=== PATIENT | male | born 1990 | race Caucasian/White ===

== ENCOUNTER 2018-12-04 20:22 | Emergency (ER) | payer MEDICAID, SELFPAY ==
--- NOTE | 2018-12-04 20:28 | ED.GENADUL_ITS ---
Discharge Plan Disposition Patient Disposition: HOME Condition: Good Discharge Details Chief Complaint: RashLesion Clinical Impression: Allergy to poison ani, Poison ani dermatitis Primary Care Provider: None,None ED Provider: Fco Joshi Home Meds and New Rx's Prescriptions: New diphenhydramine HCl [Benadryl] 25 MG capsule 25 mg PO Q6H Qty: 100 RF: 0 prednisone 20 mg tablet 20 mg PO DAILY Qty: 42 RF: 0 No Action ibuprofen 200 MG tablet 4 tab PO Q8H PRNQty: 0 RF: 0 Discharge Instructions Instructions: Poison Ani (ED) Additional Instructions: You have notable dermatitis secondary to poison ani or poison oak. Please take the steroid and antibiotic as directed. He will have a prolonged dose of 3 weeks. Please take the Benadryl every 6 hours as directed. Please take all of your close and bedding linen and wash them in hot water with extra detergent. If you notice any worsening of your symptoms, or any new symptoms such as vomiting, diarrhea, fever, chills, shortness of breath, chest pain, numbness, weakness, or fainting , please return immediately to the emergency department for reevaluation. Please follow up with your primary care provider as soon as possible for reassessment and reevaluation. As always, it was a pleasure participating in your medical care today. Please follow-up with your family doctor in regards to hypertension, avoid salty foods. Medical Decision Making This is a 28-year-old male who presents today for evaluation of rash after contact with poison ani or poison oak. Is been present for the last 2 to 3 days not been improving. Slight worsening and spreading. Rash is clinically consistent with a dermatitis from contact oil-based plant. No evidence of superinfection or cellulitis. No evidence of oral lesions. No new seizure medications. Because of the amount of rash and total skin coverage area, I do not feel that topical steroids are appropriate, and instead we will do a prolonged course of oral steroids and Benadryl. We discussed the importance of washing all clothes, and linens, and close follow-up. Patient is trying to set up with PCP at this time, and does not want any additional assistance with this. We did discuss his elevated blood pressure the importance of PCP follow-up. We discussed red flags which to return. I have extensively reviewed the treatment plan and discharge instructions with the patient. I have addressed all patient concerns at this time. The patient was made aware of what symptoms to monitor for that would warrant a return to the emergency department. Discussed the plan with the patient, they demonstrate verbal understanding and agreement with our assessment and plan at this time. HPI General Date/Time Provider Initiated Documentation: 12/04/18 20:25 . HPI Narrative: This is a 28-year-old male with a past medical history of seizures for which he takes no medication currently, bipolar disorder, ADHD and depression. He presents today for evaluation of rash. Patient states that 1 to 2 days ago at his work he came into contact with poison ani or poison [employer]. He is not sure which one, however he then subsequently developed a rash on his calves, right thigh, back, and hands. It is notably pruritic. He denies any discharge, he denies any fever or chills. He denies any oral lesions. He denies any new medications, new seizure medications, or any other previous rashes. He denies any other modifying factors at this time. He denies chest pain, shortness of breath, numbness tingling or weakness. Related Data Home Medications Medication Instructions Recorded Confirmed ibuprofen 4 tab PO Q8H PRN #0 12/07/16 12/04/18 diphenhydramine HCl [Benadryl] 25 mg PO Q6H #100 cap 12/04/18 prednisone 20 mg PO DAILY #42 tab 12/04/18 Previous Rx's Medication Instructions Recorded ibuprofen 4 tab PO Q8H PRN #0 12/07/16 diphenhydramine HCl [Benadryl] 25 mg PO Q6H #100 cap 12/04/18 prednisone 20 mg PO DAILY #42 tab 12/04/18 Allergies Allergy/AdvReac Type Severity Reaction Status Date / Time acetaminophen Allergy Severe seizures Unverified 12/04/18 20:37 bupropion HCl Allergy Severe seizures Unverified 12/04/18 20:37 [From Wellbutrin] Review of Systems Review of Systems All systems reviewed & are unremarkable except as noted in HPI and below PFSH Medical History (Updated 12/04/18 @ 20:36 by Miley Jaquez) Epilepsy (Acute) Social History Smoking/Tobacco Use Status: Current every day Alcohol Intake: former Drug use: Daily Substance use type: marijuana Do you feel safe in your relationship?: Yes Exam Narrative Exam Narrative: 1.Const: Well-nourished, Well-developed, appearing stated age 2.Eyes: PERRL, no conjunctival injection, and symmetrical lids. 3.ENT: Atraumatic external nose and ears. Moist MM. Neck: Symmetric, trachea midline, No thyromegaly. 4.CVS: +S1/S2, No murmurs or gallops. Peripheral pulses 2+ and equal in all extremities. Brisk capillary refill in all extremities. 5.RESP: Unlabored respiratory effort. Clear to auscultation bilaterally. No wheezes rales or rhonchi 6.GI: Soft, Nontender/Nondistended, No hepatosplenomegaly. No guarding or rebound. 7.MSK: Normocephalic/Atraumatic, Extremities w/o deformity or ttp No cyanosis or clubbing, Normal movement of all extremities 8.Skin: Warm, Dry, there is evidence of notable raised mildly erythemic circularly irregular lesions on the calves, right thigh, hands and right lower flank. No evidence of superimposed superinfection or cellulitis. No drainage or discharge. Negative Nikolsky sign. No large vesicles or bulla. No palpable purpura. No oral lesions. No mucosal lesions. No evidence of severe cellulitis. No evidence of vaccine preventable rash. 9.Neuro: director labor standards II-XII grossly intact. Sensation grossly intact, no focal neurologic deficits. 10.Psych: (AAO) x3. Appropriate mood and affect
[2018-12-04 20:31] VITALS: BP 153/134; PULSE 104; RESP 18; TEMP 36.6; O2SAT 98
[2018-12-04] MEDS: predniSONE 20 MG TAB 60 MG PO (20:44)
[2018-12-04 20:50] VITALS: BP 118/87
== END 2018-12-04 20:49 | disposition home or self-care (01) ==
LOC: ER 21:09
PROVIDERS: Emergency Provider Student in an Organized Health Care Education/Training Program
DX: L25.5 Unspecified contact dermatitis due to plants, except food (principal)
CPT/HCPCS: 99283; J7512

== ENCOUNTER 2019-01-11 21:48 | Emergency (ER) | payer MEDICAID, SELFPAY ==
[2019-01-11 22:01] VITALS: BP 113/59; PULSE 103; RESP 18; TEMP 36.7; O2SAT 98
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
--- NOTE | 2019-01-11 22:32 | DI.RAD_ITS ---
SYMPTOM/DIAGNOSIS: ? FOREIGN BODY RIGHT FOOT: Two views. There is generalized soft tissue swelling of the foot, particularly laterally. No radiopaque foreign bodies are present. No acute fracture or dislocation is seen. There is a non united osseous fragment seen at the base of the right fifth metatarsal. IMPRESSION: No radiopaque foreign body seen in the soft tissues.
[2019-01-11] MEDS: Cephalexin 500 MG CAP PO (22:41)
[2019-01-11 22:42] VITALS: BP 101/63; PULSE 99; RESP 16; O2SAT 100
--- NOTE | 2019-01-11 22:43 | NUR.NOTE ---
Nursing Note: pt to x-ray with precinct police lieutenant
[2019-01-11] MEDS: Lidocaine 1% Pres-Free 5 ML VIAL IJ (23:00)
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
--- NOTE | 2019-01-11 23:59 | NUR.NOTE ---
abrasion to rt rader and bottom of rt foot cleansed with betadine, soap/water, rinsed with water, dried and BRAXTON and gauze placed to site without incident. pt tolerated well. pt d/c to PD custody-refused walking boot suggested by Dr Padron. Nursing Note:
[2019-01-12] MEDS: Cephalexin 500 MG CAP PO (00:02)
== END 2019-01-12 | disposition other institution (70) ==
PROVIDERS: Emergency Provider Emergency Medicine
DX: S91.311A Laceration without foreign body, right foot, initial encounter (principal); S80.811A Abrasion, right lower leg, initial encounter; W13.4XXA Fall from, out of or through window, initial encounter; W01.110A Fall on same level from slipping, tripping and stumbling with subsequent striking against sharp glass, initial encounter; F10.120 Alcohol abuse with intoxication, uncomplicated
CPT/HCPCS: 90471; 99285; 73620; 99284; L4361

== ENCOUNTER 2021-08-11 22:27 | Observation (INO) | payer MEDICAID, SELFPAY ==
[2021-08-11] VITALS (13 sets, daily range): BP systolic 112–141; BP diastolic 59–125; PULSE 91–110; RESP 0–29; TEMP 36.7; O2SAT 68–99
--- NOTE | 2021-08-11 22:15 | RT.EKG_ITS ---
APPROVED REPORT Exam: Resting ECG Reason for Exam: ?overdose Patient Location: E HR:116 bpm ECG Measurements Heart Rate 116 AXIS PA 211 P 51 QRSd 94 QRS -40 QT 325 T 52 QTc 439 Conclusion Sinus tachycardia...rate> 99 Ventricular premature complex...V complex w/ short R-R interval Prolonged PA interval...PA >205, V-rate 91-120 Left axis deviation...QRS axis (-30,-90) significant motion artifact, no obvious stemi
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
[2021-08-11 22:59] LABS: BE (Venous) -4 mmol/L (-2-3); HCO3 (Venous) 22 mmol/L (23-28); O2 Sat (Venous) 86 %; TCO2 (Venous) 20 mmol/L (24-29); pCO2 (Venous) 44 mmHg (41-51); pH (Venous) 7.31 (7.31-7.41); pO2 (Venous) 58 mmHg
[2021-08-11 22:59] LABS: Source Nasal/Nares
[2021-08-11 23:01] LABS: Abs Immature Grans 0.03 10^3/uL (0.0-0.06); Absolute Basophil Count 0.04 10^3/uL (0.0-0.2); Absolute Eosinophil Count 0.15 10^3/uL (0.0-0.7); Absolute Lymphocyte Count 1.92 10^3/uL (1.2-3.4); Absolute Monocyte Count 0.81 10^3/uL (0.1-0.8); Absolute Neutrophil Count 6.46 10^3/uL (1.2-6.7); Basophils % 0.4; Eosinophils % 1.6; HCT 45.3 % (40.0-50.0); HGB 15.3 g/dL (13.5-17.5); Immature Grans % 0.3; Lymphocytes % 20.4; MCH 30.1 pg (27.0-33.0); MCHC 33.8 % (32.0-36.0); MCV 89.2 fL (80-95); MPV 9.6 fL (8.0-11.0); Monocytes % 8.6; Neutrophils % 68.7; Nucleated RBC 0 %; Platelet Count 342 10^3/uL (130-400); RBC 5.08 10^6/uL (4.36-5.78); RDW 12.7 % (11.8-14.1); RDW-SD 41.8 fL; WBC 9.41 10^3/uL (4.4-10.8)
[2021-08-11 23:05] LABS: Bilirubin Negative (Negative); Blood Small (Negative); Clarity Sl Cloudy (Clear); Glucose Negative (Negative); Ketones Negative (Negative); Leukocyte Esterase Negative (Negative); Nitrite Negative (Negative); Specific Gravity >= 1.030 (1.005-1.025); Urobilinogen 0.2 EU/dL (Up TO 0.2)
[2021-08-11] MEDS: Rocuronium 50 MG/5 ML SYR 150 MG IVP (23:07)
[2021-08-11] MEDS: PROPOFOL 1,000 MG/100 ML BTL 4.26 MG IVPB (23:10)
--- NOTE | 2021-08-11 23:15 | DI.CT_ITS ---
Exam(s) CT CHEST/ABD/PEL WO EXAM: CT CHEST/ABD/PEL WO CLINICAL HISTORY: ?aspiration vs pneumonia, tube placement. TECHNIQUE: Imaging Protocol: Axial computed tomography images with coronal and sagittal reformatted images were created and reviewed CONTRAST MATERIAL: Intravenous: Omnipaque 350 Contrast volume:100 ml Oral: yes / no COMPARISON: No exams were available for comparison FINDINGS: CHEST: Tracheobronchial tree: Endotracheal tube 2 cm from the amanda. Mediastinum and Kate: No dominant adenopathy or fluid collection. Pulmonary parenchyma: Consolidation in both lower lobes posterior aspect of the right upper lobe with air bronchograms, right greater than left. Pleura: No effusion or pneumothorax. Lymph nodes: Within normal limits. Aorta: Thoracic portion non-dilated. Heart: Heart size normal. Bones: Unremarkable for age. No lytic or blastic lesions. A nasogastric tube within the esophagus and stomach .. ABDOMEN: Liver: Normal density. No measurable mass. Gallbladder and biliary tract: No radiodense calculus or dilation. Pancreas: Normal density, no abnormal calcifications or inflammatory process. Spleen: Normal. Kidneys: Normal size, contour and axis. No radiodense stones or obstructive uropathy. No masses seen. Adrenal glands: No masses seen. Aorta: Abdominal portion non-dilated. Lymph nodes: Within normal limits. Soft tissues: Unremarkable. Stomach and small bowel: Nasogastric tube terminates in the body of the stomach. PELVIS: Bladder: Symmetric distention, no gross wall thickening. Bowel: No obstruction or bowel wall thickening. Peritoneal cavity: No ascites, collection or mesenteric inflammatory response. Bones: Right L5 pars defect. Spine otherwise unremarkable. No pelvic fractures. Reproductive organs: Ovoid soft tissue density within the right inguinal canal could represent an und escended testicle. IMPRESSION: Satisfactory placement of NG tube and nasogastric tube. Dense bilateral areas of pulmonary consolida tion suspicious for aspiration pneumonia. The ovoid soft tissue density in the right inguinal canal could represent an undescended testicle. C linical correlation is recommended. RADIATION DOSE DELIVERED: 2,337.69mGy.cm Total DLP DATA REPOSITORY: All CT scans at this facility are submitted to the National Radiology Data Registry (NRDR) Dose Index Registry (DIR) with the [employer] (A[employer]). RADIATION OPTIMIZATION: All CT scans at this facility use at least one of these dose optimization te chniques: automated exposure control; mA and/or kV adjustment per patient size (includes targeted exa ms where dose is matched to clinical indication); or iterative reconstruction.
[2021-08-11 23:23] LABS: Bacteria Moderate HPF (Negative); Crystals Negative HPF (Negative); Epithelial Cells Rare HPF (Negative); Mucus Trace (Negative); Other Cells Few Renal (Negative)
[2021-08-11 23:24] LABS: C & S Indicated? Yes; Casts 10-20 Hyaline LPF (Negative)
[2021-08-11 23:25] LABS: Acetaminophen < 2 ug/mL (10-30)
[2021-08-11 23:30] LABS: *AMPHETAMINES SCREEN URINE Positive (Negative); *BARBITURATES SCREEN URINE Negative (Negative); *BENZODIAZEPINES SCREEN URINE Positive (Negative); Cannabinoids THC Positive (Negative); Cocaine Screen,Urine Negative (Negative); METHADONE URINE SCREEN Negative (Negative); OPIATES URINE SCREEN Negative (Negative)
[2021-08-11 23:31] LABS: ALT 96 U/L (16-63); AST 80 U/L (15-37); Albumin 3.8 g/dL (3.4-5.0); Alkaline Phosphatase 78 U/L (46-116); Anion Gap 15.4 mmol/L (3-11); BUN 4 mg/dL (7-18); Bilirubin, Total 0.5 mg/dL (0.2-1.0); CO2 21.6 mmol/L (21.0-32.0); CREATININE 1.1 mg/dL (0.70-1.30); Calcium 8.5 mg/dL (8.5-10.1); Chloride 105 mmol/L (98-107); ETHANOL BLOOD 157.6 mg/dL (<10); Glucose 98 mg/dL (74-106); Magnesium 2.4 mg/dL (1.8-2.4); Potassium 3.5 mmol/L (3.5-5.1); Sodium 142 mmol/L (136-145); Total Protein 6.7 g/dL (6.4-8.2)
[2021-08-11 23:32] LABS: Tricyclic Antidepressants Negative (Negative)
[2021-08-11 23:32] LABS: Creatine Kinase 1088 U/L (39-308)
[2021-08-11 23:42] LABS: COVID-19 PCR Negative (Negative)
[2021-08-12] VITALS (38 sets, daily range): BP systolic 84–140; BP diastolic 44–92; PULSE 75–106; RESP 14–37; TEMP 35.6–36.2; O2SAT 92–100
[2021-08-12] MEDS: Normal Saline 1,000 ML 1000 ML IV
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
[2021-08-12] MEDS: LORazepam 2 MG/ML VIAL IVP (01:40)
[2021-08-12] MEDS: Lactated Ringers 1,000 ML 150 ML IV (02:15)
[2021-08-12] MEDS: PROPOFOL 1,000 MG/100 ML BTL 31.524 MG IVPB (02:25)
[2021-08-12] MEDS: cefTRIAXone 1,000 MG in Normal Saline 50 ML 100 MG IVPB (03:01)
[2021-08-12] MEDS: Normal Saline Flush 10 ML SYR IVP (03:03)
--- NOTE | 2021-08-12 03:22 | NUR.NOTE ---
Mother phone [phone].Nursing Note:
[2021-08-12] MEDS: PROPOFOL 1,000 MG/100 ML BTL 34.08 MG IVPB (05:21)
[2021-08-12 06:51] LABS: HCT 46.9 % (40.0-50.0); HGB 15.6 g/dL (13.5-17.5); MCH 29.9 pg (27.0-33.0); MCHC 33.3 % (32.0-36.0); MPV 9.8 fL (8.0-11.0); Platelet Count 341 10^3/uL (130-400); RBC 5.21 10^6/uL (4.36-5.78); RDW 12.9 % (11.8-14.1); RDW-SD 42.5 fL; WBC 13.29 10^3/uL (4.4-10.8)
[2021-08-12 07:06] LABS: ALT 88 U/L (16-63); AST 73 U/L (15-37); Anion Gap 7.1 mmol/L (3-11); BUN 3 mg/dL (7-18); CO2 27.9 mmol/L (21.0-32.0); CREATININE 1.1 mg/dL (0.70-1.30); Calcium 8.5 mg/dL (8.5-10.1); Chloride 107 mmol/L (98-107); Creatine Kinase 873 U/L (39-308); Glucose 87 mg/dL (74-106); Potassium 4.2 mmol/L (3.5-5.1); Sodium 142 mmol/L (136-145)
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
[2021-08-12] MEDS: dexmedeTOMidine IN 0.9 % NACL 400 MCG/100 ML BTL 12.1 MCG IVPB (07:30)
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
== END 2021-08-12 09:30 | disposition home or self-care (01) ==
LOC: ER 08-12 02:05 → ICU 08-12 02:06
PROVIDERS: Admitting Provider General Practice; Emergency Provider Emergency Medicine; Visit Provider General Practice
DX: T50.901A Poisoning by unspecified drugs, medicaments and biological substances, accidental (unintentional), initial encounter (principal); J69.0 Pneumonitis due to inhalation of food and vomit; J96.90 Respiratory failure, unspecified, unspecified whether with hypoxia or hypercapnia; M62.82 Rhabdomyolysis; D72.829 Elevated white blood cell count, unspecified; S00.03XA Contusion of scalp, initial encounter; Y04.0XXA Assault by unarmed brawl or fight, initial encounter; Z78.1 Physical restraint status; F17.210 Nicotine dependence, cigarettes, uncomplicated; R45.1 Restlessness and agitation; Z20.822 Contact with and (suspected) exposure to COVID-19; F15.10 Other stimulant abuse, uncomplicated; R74.01 Elevation of levels of liver transaminase levels; R94.31 Abnormal electrocardiogram [ECG] [EKG]; F10.129 Alcohol abuse with intoxication, unspecified; Y90.6 Blood alcohol level of 120-199 mg/100 ml
CPT/HCPCS: 31500; 51702; 71250; 80048; 80053; 80307; 82550; 82805; 85027; 87040; 87635; 93005; 96361; 96365; 96366; 96375; 99291; 70450; 72125; 74176; 80320; 80329; 81003; 81015; 83735; 84443; 84450; 84460; 85025; 87086; 93010; 94002; 99235; J0696; J2060

== ENCOUNTER 2022-06-11 11:22 | Inpatient (IN) | payer MEDICAID, SELFPAY ==
[2022-06-11 11:27] VITALS: BP 151/77; PULSE 67; RESP 18; TEMP 36.7; O2SAT 97
[2022-06-11 12:02] LABS: Abs Immature Grans 0.93 10^3/uL (0.0-0.06); Absolute Basophil Count 0.12 10^3/uL (0.0-0.2); Absolute Eosinophil Count 0.27 10^3/uL (0.0-0.7); Absolute Lymphocyte Count 1.57 10^3/uL (1.2-3.4); Absolute Neutrophil Count 12.46 10^3/uL (1.2-6.7); Basophils % 0.7; Eosinophils % 1.6; HCT 40.1 % (40.0-50.0); HGB 13.6 g/dL (13.5-17.5); Immature Grans % 5.5; Lymphocytes % 9.3; MCH 29.1 pg (27.0-33.0); MCHC 33.9 % (32.0-36.0); MCV 86 fL (80-95); MPV 9.4 fL (8.0-11.0); Neutrophils % 73.9; RBC 4.67 10^6/uL (4.36-5.78); RDW 11.9 % (11.8-14.1); RDW-SD 37.6 fL; WBC 16.86 10^3/uL (4.4-10.8)
[2022-06-11 12:05] LABS: Absolute Monocyte Count 1.52 10^3/uL (0.1-0.8); ESR 36 mm/hr (0-15)
[2022-06-11] MEDS: VANCOMYCIN/WATER (PEG) 2 GM/400 ML BAG IVPB ×2 (12:07→23:35)
[2022-06-11 12:10] LABS: ALT 20 U/L (16-63); AST 16 U/L (15-37); Albumin 3.7 g/dL (3.4-5.0); Alkaline Phosphatase 95 U/L (46-116); Anion Gap 5.4 mmol/L (3-11); BUN 13 mg/dL (7-18); Bilirubin, Total 0.4 mg/dL (0.2-1.0); C-Reactive Protein 8.03 mg/dL (0.0-0.3); CO2 29.6 mmol/L (21.0-32.0); Calcium 9.5 mg/dL (8.5-10.1); Chloride 100 mmol/L (98-107); Estimated GFR 103.19 (mL/min/1.73m2); Glucose 115 mg/dL (74-106); Potassium 4.3 mmol/L (3.5-5.1); Sodium 135 mmol/L (136-145); Total Protein 7.9 g/dL (6.4-8.2)
[2022-06-11 12:13] VITALS: BP 113/49; PULSE 85; RESP 18; O2SAT 97
[2022-06-11 12:20] LABS: Platelet Count 438 10^3/uL (130-400)
[2022-06-11 12:21] LABS: Diff Comment Agrees w/ Instrument; RBC Morphology Normal
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
[2022-06-11 13:04] LABS: Source Nasal/Nares
[2022-06-11 13:37] LABS: COVID-19 PCR Negative (Negative)
[2022-06-11 14:19] VITALS: BP 118/83; PULSE 88; RESP 18; O2SAT 99
[2022-06-11 14:35] VITALS: BP 130/79; PULSE 82; RESP 18; TEMP 35.9; O2SAT 100
[2022-06-11 14:39] VITALS: BP 130/79; PULSE 85; RESP 18; TEMP 35.9; O2SAT 100
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
[2022-06-11] MEDS: Heparin 5,000 UNITS/ML VIAL 5000 UNITS SC ×2 (16:10→22:01)
[2022-06-11] MEDS: Naproxen 500 MG TAB PO (16:10)
[2022-06-11] MEDS: Mupirocin 2% 15 GM TUBE TP (21:45)
[2022-06-11] MEDS: Omeprazole 20 MG CAPCR PO (22:01)
--- NOTE | 2022-06-11 22:14 | WOUNDCARE ---
Wound Care Report 32 yo male with a h/o methamphetamine abuse. Pedro is currently incarcerated. Pedro has pimple-like lesions on his back. Two of the lesions have grown significantly in size becoming erythematous and tender. Pedro has taken antibiotics for 1 week; Clindamycin initially then Bactrim with no improvement. Pedro has an elevated WBC at 16.86 and Vancomycin was started in the ED. Pedro is a current smoker and is positive for MRSA.
[2022-06-11 22:52] VITALS: BP 107/66; PULSE 71; RESP 16; TEMP 36.7; O2SAT 98
--- NOTE | 2022-06-11 22:59 | WOUNDCONS ---
- If Service Date Differs Date of service: 06/11/22 Time of Service: 22:59 Wound Initial Evaluation Narrative: Patient seen at bedside. Patient is agreeable to wound consult with photography and consent signed. This keno writer / runner reviewed the H&P and Labs. Pedro is a 32 yo male with a h/o methamphetamine abuse. Pedro is currently incarcerated. Pedro has pimple-like lesions on his back. Two of the lesions have increased significantly in size becoming erythematous and tender. Pedro has taken antibiotics for 1 week; Clindamycin initially then Bactrim with no improvement. Pedro has an elevated WBC at 16.86. Vancomycin was started in the ED. Pedro is a current smoker. The wound culture is positive for MRSA. - Wound Left Posterior Scapula Wound Type: Full Thickness Wound Bed Greatest Portion: Shiny Wound Surrounding Tissue Appearance: Bright Red, Taut, Indurated Wound Length: 7 m (erythematous area included in measurement) Wound Width: 5.5 m (erythematous area included in measurement) Wound Depth: 0.2 cm Wound Drainage Amount: Minimal Wound Drainage Odor: None/Absent Wound Drainage Description: Sero Sanguineous Wound Topical Solution/Irrigant: Saline Irrigant Right Posterior Thoracic Wound Type: Full Thickness Wound General Appearance: Reddened, Draining Wound Bed Greatest Portion: Yellow (Slough) Wound Surrounding Tissue Appearance: Bright Red, Indurated, Undermined Percent of Wound Bed Slough/Yellow: 90 (Core of slough in wound bed is tethered internally) Wound Length: 1 cm Wound Width: 1.4 cm Wound Depth: 1.5 cm Wound Drainage Amount: Large Wound Drainage Odor: Foul Odor Wound Drainage Description: Purulent Wound Topical Solution/Irrigant: Saline Irrigant Wound Debridement Result: Pt Unable to Tolerate, Yellow Sloughing Remains (Tunneling in 360* directions while attempting to measure wound depth) Additional Other Comments: Erythematous area to left of wound in center of back is outlined. with blue marker and continues to be an area of concern. Lower Right Back Wound Type: Full Thickness Wound Bed Greatest Portion: Red (Granulation) Wound Length: 1.5 cm Wound Width: 1.4 cm Wound Depth: 0.3 cm Wound Drainage Amount: Moderate Wound Drainage Odor: None/Absent Wound Drainage Description: Purulent, Sero Sanguineous Wound Topical Solution/Irrigant: Saline Irrigant Left Posterior Thoracic Wound Type: Other Wound General Appearance: Open to air (Erythema is outlined with skin marker), Reddened Wound Surrounding Tissue Appearance: Bright Red, Indurated Wound Drainage Amount: None Right Shoulder Wound Type: Full Thickness Wound General Appearance: Well Approximated Wound Bed Greatest Portion: Red (Granulation) Wound Surrounding Tissue Appearance: [place] Wound Drainage Amount: None - Pain Pain Level: 6 Pain Description: Burning, Achy - Treatment/Dressing Change Topicals/Ointments: Other (Mupirocin) Cleanse With: Saline (cleanse with saline on gauze) Dressing Types: Mepilex w/Border - Nutrition Education Reviewed Nutrition Education: Yes Note: PT BMI 46.8. Protien intake discussed for effective wound healing reviewed with patient. Smoking cessation discussed and recommended for proper wound healing. - Recomendation Recomendation:: Right posterior thoracic wound with packing remove dressing daily Wipe away exudate using gauze and Anasept wound tank car cleaner Remove iodoform packing Flush wound with 10ml of normal saline With sterile technique, repack wound with iodoform dressing Cover with mepilex All other lesions including unopened areas... Remove dressing TID Clean area with Anasept and gauze. Pat dry. Apply mupirocin to lesions TID Cover with mepilex or bandaid Physcian/Nurse Practioner Notified: Yes (provider will be emailed) Treatment Time - Time Total Time Spent with Patient: 60
[2022-06-12] MEDS: Heparin 5,000 UNITS/ML VIAL 5000 UNITS SC ×3 (05:58→21:38)
[2022-06-12 06:39] LABS: Abs Immature Grans 1.01 10^3/uL (0.0-0.06); Absolute Basophil Count 0.07 10^3/uL (0.0-0.2); Absolute Eosinophil Count 0.37 10^3/uL (0.0-0.7); Absolute Lymphocyte Count 2.04 10^3/uL (1.2-3.4); Absolute Monocyte Count 1.42 10^3/uL (0.1-0.8); Basophils % 0.6; HCT 35.6 % (40.0-50.0); HGB 12.2 g/dL (13.5-17.5); Immature Grans % 8.3; Lymphocytes % 16.7; MCHC 34.3 % (32.0-36.0); MCV 88 fL (80-95); MPV 9.1 fL (8.0-11.0); Monocytes % 11.6; Neutrophils % 59.8; Platelet Count 401 10^3/uL (130-400); RBC 4.07 10^6/uL (4.36-5.78); RDW 11.9 % (11.8-14.1); RDW-SD 38.1 fL; WBC 12.23 10^3/uL (4.4-10.8)
[2022-06-12 06:41] LABS: ESR 30 mm/hr (0-15)
[2022-06-12 06:42] LABS: Absolute Neutrophil Count 7.31 10^3/uL (1.2-6.7)
[2022-06-12 07:08] LABS: C-Reactive Protein 5.75 mg/dL (0.0-0.3)
[2022-06-12 07:10] LABS: Diff Comment Diff Reviewed; RBC Morphology Normal
[2022-06-12] MEDS: Omeprazole 20 MG CAPCR PO ×2 (07:55→20:45)
[2022-06-12 08:01] VITALS: BP 104/68; PULSE 76; RESP 16; TEMP 36.1; O2SAT 96
[2022-06-12] MEDS: Omnipaque 350 MG/ML 500 ML BTL-Imaging package 70 ML IJ (12:58)
[2022-06-12] MEDS: Normal Saline - Diluent 50 ML VIAL IV (12:59)
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
--- NOTE | 2022-06-12 13:45 | DI.CT_ITS ---
Exam(s) CT CHEST W EXAM: CT CHEST W CLINICAL HISTORY: multiple abscesses on back. TECHNIQUE: Multi planar reconstructions were performed. CONTRAST MATERIAL: Omnipaque 350; 70 cc COMPARISON: CT CT CHEST/ABD/PEL WO from 08/12/2021 FINDINGS: CHEST: EXTRA THORACIC SOFT TISSUES: There are multiple areas of subcutaneous abnormality both sides of the u pper back which are both cutaneous and extending through the subcutaneous layer and more prominent ri ght of center. On the right side there are few gas bubbles therein, consistent with abscess. This a ana measures approximately 5 cm across and extends from the skin to the surface of the ipsilateral ri ght trapezius muscle. On the opposite-left side there is a similar but smaller finding higher up the re does not appear to be evidence of abscess within the actual trapezius musculature on either side. There is overlying skin thickening-probable cellulitis. LUNGS: Appearance of the lungs has significantly improved from July 2021. The previously present bi lateral infiltrates resolved. Minimal increased markings are noted lung bases but no confluent infil trates nor pleural effusions. No ominous pulmonary nodules. No significant focal findings in trache a and mainstem bronchi. MEDIASTINUM: There is no hilar nor mediastinal adenopathy. Visualized thyroid unremarkable. CARDIAC: Heart size is normal. There is no pericardial effusion.Caliber of the thoracic aorta is wit hin normal limits. VISUALIZED UPPER ABDOMEN:There are no significant adrenal masses. OSSEOUS: No significant osseous lesions.. IMPRESSION: 1. Subcutaneous findings of the upper back both sides right more than left consistent with infectious /abscesses. There is no radiopaque foreign body 2. Significant improvement in the appearance of both lung herrera when compared to the prior MRI scan of July 2011. The bilateral infiltrates have cleared and there presently no pleural effusions. RADIATION DOSE DELIVERED: 868.47mGy.cm Total DLP DATA REPOSITORY: All CT scans at this facility are submitted to the National Radiology Data Registry (NRDR) Dose Index Registry (DIR) with the [employer] (ACR). RADIATION OPTIMIZATION: All CT scans at this facility use at least one of these dose optimization te chniques: automated exposure control; mA and/or kV adjustment per patient size (includes targeted exa ms where dose is matched to clinical indication); or iterative reconstruction.
[2022-06-12] MEDS: VANCOMYCIN/WATER (PEG) 2 GM/400 ML BAG IVPB ×2 (13:47→23:46)
--- NOTE | 2022-06-12 15:04 | PHA.REVIEW2 ---
Pharmacy Admission Review - Admission Clinical Review (Last Reviewed 08/12/21 @ 08:39 by Tavo Cisse MD) MRSA cellulitis (Acute) Methamphetamine abuse (Acute) acetaminophen Allergy (Severe, Unverified 06/11/22 12:55) seizures bupropion HCl [From Wellbutrin] Allergy (Severe, Unverified 06/11/22 12:55) seizures Resuscitation Status Full Code Height 5 ft 9 in Weight 143.7 kg - Renal Dosing Renal Dosing: BUN 13 mg/dL (7-18) 06/11/22 11:42 Creatinine 1.0 mg/dL (0.70-1.30) 06/11/22 11:42 Medications needing adjustments: Reviewed (Crcl ~151.2 mL/min current meds okay) - Anticoagulation Anticoagulation: Hgb 12.2 g/dL (13.5-17.5) L 06/12/22 06:10 Hct 35.6 % (40.0-50.0) L 06/12/22 06:10 Plt Count 401 10^3/uL (130-400) H 06/12/22 06:10 Creatinine 1.0 mg/dL (0.70-1.30) 06/11/22 11:42 DVT Prophylaxis: Reviewed Medications: Heparin Therapeutic Anticoagulation: N/A - Opiate Usage Evaluate Pain Scale/Pains Meds: Reviewed Scheduled Bowel Reg ordered if on Opiates?: No (has PRN med ordered) - Relevant Labs ESR 30 mm/hr (0-15) H 06/12/22 06:10 Sodium 135 mmol/L (136-145) L 06/11/22 11:42 Potassium 4.3 mmol/L (3.5-5.1) 06/11/22 11:42 Chloride 100 mmol/L (98-107) 06/11/22 11:42 C-Reactive Protein 5.75 mg/dL (0.0-0.3) H 06/12/22 06:10 Electrolytes, C-Reactive P, ESR: Reviewed - DM Control DM Control: Glucose 115 mg/dL (74-106) H 06/11/22 11:42 DM Control: Reviewed (no DM noted in pt's medical history) - Cardiac Review BP, HR, EF%: Reviewed - Qtc Review QTc: N/A - IV to PO Switch IV Medications: Reviewed - Home Meds Home Med List reviewed: Reviewed (buprenorphine should be used cautiously in pts with a history of seizure disorders as it may cause or exacerbate preexisting seizures) Relevent Home Meds Not ordered & why?: acetaminophen (it is noted that the pt has an allergy to this med and the reaction is seizures, the provider was going to talk to the pt regarding this), triamcinolone cream - Current meds Current Medication Order Review: Reviewed - Comments Comments/Follow Ups: Watch VS, labs, for culture results, and for med changes. Antibiotic Review - Pharmacy Antibiotic Review Pharmacy Antibiotic Activity: C/S review (One BC has no growth at 24 hours, the other is growing gram positive cocci. MRSA screen is negative), Reviewed, no change (Vancomycin continues (day 2) for MRSA cellulitis per H&P. Vanco trough to be ordered tomorrow morning.) Relevant Labs: Relevant Labs 06/12/22 06:10 C-Reactive Protein 5.75 H
--- NOTE | 2022-06-12 15:10 | PGE_ITS ---
Date of Service Date of service: 06/12/22 Time of Service: 10:55 Assessment and Plan Assessment and plan (1) MRSA cellulitis: Status: Acute Assessment and plan: 32yo male who is incarcerated, presents with MRSA cellulitis, with multiple abscesses over his back and arms. Failed outpt treatment with clindamycin, then IM rocephin + Bactrim. Continue Vancomycin IV, through level discussed with pharmacy and will be scheduled for 06/13 AM before AM dose Continue Bactroban cream TID to lesions. Wound care: pack draining wounds; right mid-back wound dressing change bid Monitor clinically CT scan completed Surgical consult completed Bacteremia in one bottle for GPC, will await speciation to determine if endocarditis should be considered as a potential complication. We will then consider TTE and adjustment of the treatment then. (2) Gram-positive cocci bacteremia: Status: Acute Assessment and plan: As above (3) Obesity, morbid, BMI 40.0-49.9: Status: Chronic Assessment and plan: Encourage lifestyle changes. (4) Abscess of multiple sites: Status: Acute Assessment and plan: As above (5) DVT prophylaxis: Status: Acute Assessment and plan: Pt has risk factors for DVT Heparin 5000 units SQ Q8 hours (6) Discharge planning issues: Status: Acute Assessment and plan: Care management will determine patient's placement based on clinical progression and length of treatment Patient is from a correctional facility Discussed with Dr. Purdy Subjective Subjective Interval history since last seen: Constitutional: reports: Patient reports feeling better, denies chills or fever overnight denies dizziness or lightheadedness HEENT: reports Denies swallowing difficulty, neck pain or new neck swelling Neuro: Denies weakness to extemities, denies new numbness Cardiac: ?Denies chest pain Resp: Denies shortness of breath or difficulty breathing GI: Reports having a bowel movement today Denies nausea or vomiting Musk:? Reports soreness to back and and trapezius muscle at 2/10 but denies needing pain medicine at this time Skin: Denies any other lesions on his body. : Denies dysuria Exam Narrative Exam Narrative: HEENT: normocephalic , atraumatic, no adenopathy, no swelling noticed in to neck, lower jaw. Neuro: Alert and oriented X4, no focal neurological deficit, conjugated gaze Cardiac: S1, S2, no murmur, no swelling to extremities, pulses are present, cap refill <3 seconds Resp: Lung are clear throughout GI: Soft, non-tender, non distended :Voiding yellow clear urine Musk:?push and pull strength 5/5 Skin: multiple (5) lesions to to back, pus-like drainage noticed, no foul odor, mepilex in place on each wound Psych: Calm, flat affect Objective Last Vital Signs Temp 97.0 F L 06/12/22 08:01 Pulse 76 06/12/22 08:01 Resp 16 06/12/22 08:01 BP 104/68 06/12/22 08:01 Pulse Ox 96 06/12/22 08:01 Laboratory Results - last 24 hr 06/12/22 06/12/22 06/12/22 06:10 06:10 06:10 WBC 12.23 H RBC 4.07 L Hgb 12.2 L Hct 35.6 L MCV 88 MCH 30.0 MCHC 34.3 RDW 11.9 Plt Count 401 H MPV 9.1 Immature Gran % 8.3 Neutrophils % 59.8 Lymphocytes % 16.7 Monocytes % 11.6 Eosinophils % 3.0 Basophils % 0.6 Nucleated RBC % 0.0 Absolute Neutrophils 7.31 H Absolute Lymphocytes 2.04 Absolute Monocytes 1.42 H Absolute Eosinophils 0.37 Absolute Basophils 0.07 RBC Morphology Normal ESR 30 H C-Reactive Protein 5.75 H Time Spent with Patient Time Spent with Patient: >50 minutes Time was spent: preparing to see the patient(eg.review tests), obtaining and/or reviewing separately otained hiistory, referring, communicating with other health youth career specialist and indepentently interpreting results
[2022-06-12 15:52] VITALS: BP 109/63; PULSE 75; RESP 18; TEMP 36.5; O2SAT 97
--- NOTE | 2022-06-12 15:55 | W.PM.PROGNOT ---
Date of Service Date of service: 06/12/22 Time of Service: 15:58 Assessment and Plan Assessment and plan (1) Abscess of multiple sites: Status: Acute Assessment and plan: Due to MRSA, having failed outpatient treatment. Continue vancomycin. Will do serial bed-side assessments of the abscesses that have not yet been drained. Surgery evaluated the draining abscesses and is recommending packing/wound care. (2) MRSA cellulitis: Status: Acute Assessment and plan: As above (3) Gram-positive cocci bacteremia: Status: Acute Assessment and plan: Suspect this is due to #1; will await speciation/sensitivities. Obtain echo to ensure no endocarditis, especially given reports of chest pain. 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 May require transition to a medical facility for encarcerated patients. (6) DVT prophylaxis: Status: Acute Assessment and plan: SC heparin. Subjective Subjective Interval history since last seen: Mr Hoang states that one of the abscesses on his back has been draining a lot of pus. He denies dizziness, shortness of breath, nausea. He has had a constant chest pain since this whole thing started 2 weeks ago. Exam Narrative Exam Narrative: General: Pleasant male who is sitting up in bed, multiple dressings on his back Skin: when dressing removed, the R upper back lesion with a skin opening drained an impressive amount of purulent material; other open lesions had significantly less purulent discharge; L-sided closed indurated erythematous area was interrogated via POCUS ultrasound: no clear fluid collection demonstrated. HEENT: EOMI, MMM Heart: RRR, no m/r/g Lungs: CTAB Abdomen: soft, nontender, nondistended Extremities: no edema BLEs Objective Last Vital Signs Temp 36.5 C 06/12/22 15:52 Pulse 75 06/12/22 15:52 Resp 18 06/12/22 15:52 BP 109/63 06/12/22 15:52 Pulse Ox 97 06/12/22 15:52 Laboratory Results - last 24 hr 06/12/22 06/12/22 06/12/22 06:10 06:10 06:10 WBC 12.23 H RBC 4.07 L Hgb 12.2 L Hct 35.6 L MCV 88 MCH 30.0 MCHC 34.3 RDW 11.9 Plt Count 401 H MPV 9.1 Immature Gran % 8.3 Neutrophils % 59.8 Lymphocytes % 16.7 Monocytes % 11.6 Eosinophils % 3.0 Basophils % 0.6 Nucleated RBC % 0.0 Absolute Neutrophils 7.31 H Absolute Lymphocytes 2.04 Absolute Monocytes 1.42 H Absolute Eosinophils 0.37 Absolute Basophils 0.07 RBC Morphology Normal ESR 30 H C-Reactive Protein 5.75 H Objective Narrative Objective Narrative: CT chest/thorax: 1. Subcutaneous findings of the upper back both sides right more than left consistent with infectious/abscesses.? There is no radiopaque foreign body 2. Significant improvement in the appearance of both lung herrera when compared to the prior MRI scan of July 2011.? The bilateral infiltrates have cleared and there presently no pleural effusions. Time Spent with Patient Time Spent with Patient: 35-49 minutes Time was spent: preparing to see the patient(eg.review tests), obtaining and/or reviewing separately otained hiistory, ordering medications,tests, procedures, referring, communicating with other health managed care analyst, indepentently interpreting results, counseling the patient and care coordination
--- NOTE | 2022-06-12 16:22 | PDOC.CMIN ---
- If Service Date Differs Date of service: 06/12/22 Time of Service: 16:22 Care Management Initial Assess REASON FOR HOSPITALIZATION:: Pustular lesions, cellulitis PAST MEDICAL HISTORY/PAST SURGICAL HISTORY:: All Active Problems. MRSA cellulitis (Acute). Prolonged [place] interval present on electrocardiogram (Acute). Transaminitis (Acute). Leukocytosis (Acute). Methamphetamine abuse (Acute). Elevated CPK (Acute). Rhabdomyolysis (Acute). Agitation (Acute). Medical History. Epilepsy PREVIOUS FUNCTIONAL STATUS/SOCIAL/FAMILY SUPPORTS:: Pedro is currently incarcerated at [facility]. He is independent at baseline. CURRENT FUNCTIONAL STATUS:: Pedro was sitting up in bed when CM met with him. He stated that he is comfortable and being well cared for at [facility]. He reported sleeping and eating well. He has two correctional officers in the room with him, per protocol. CM will continue to follow. ADVANCE DIRECTIVES:: Not on file. Has patient been provided with info about the portal/API?: Yes Did the patient sign up for the portal?: No CODE STATUS:: Full Code INSURANCE COVERAGE / FINANCIAL ISSUES:: [facility]/ [facility] CURRENT HOME/COMMUNITY SERVICES/EQUIPMENT:: Pedro is currently incarcerated. PRIMARY CARE PHYSICIAN:: unknown. POTENTIAL DISCHARGE NEEDS:: [facility]. PATIENT/FAMILY EDUCATION NEEDS:: Review discharge instructions and limitations, discussion of self care needs including ask me three. ANTICIPATED BARRIERS TO DISCHARGE:: None identified. TRANSPORTATION:: Via secure transport, provided by [facility]. PLAN:: Anticipate Pedro will return to the [place] correctional facility vs an inpatient unit [facility] another [facility], if indicated. [facility] will coordinate his secure transport. CM will continue to support discharge planning considerations.
[2022-06-12 17:47] LABS: *AMPHETAMINES SCREEN URINE Negative (Negative); *BARBITURATES SCREEN URINE Negative (Negative); *BENZODIAZEPINES SCREEN URINE Negative (Negative); Cannabinoids THC Negative (Negative); Cocaine Screen,Urine Negative (Negative); METHADONE URINE SCREEN Negative (Negative); OPIATES URINE SCREEN Negative (Negative)
[2022-06-12 17:48] LABS: Tricyclic Antidepressants Negative (Negative)
[2022-06-12] MEDS: Mupirocin 2% 15 GM TUBE TP (20:13)
[2022-06-12 20:42] VITALS: BP 128/72; PULSE 70; RESP 19; TEMP 36.6; O2SAT 96
[2022-06-12] MEDS: Naproxen 500 MG TAB PO (20:45)
[2022-06-12] MEDS: Normal Saline Flush 10 ML SYR IVP ×2 (21:38→23:50)
[2022-06-13 01:48] VITALS: BP 118/73; PULSE 70; RESP 18; TEMP 35.8; O2SAT 96
[2022-06-13] MEDS: Heparin 5,000 UNITS/ML VIAL 5000 UNITS SC ×3 (05:45→20:27)
[2022-06-13 06:44] LABS: HCT 36.4 % (40.0-50.0); HGB 12.2 g/dL (13.5-17.5); MCH 29.5 pg (27.0-33.0); MCHC 33.5 % (32.0-36.0); MCV 88 fL (80-95); Platelet Count 394 10^3/uL (130-400); RBC 4.13 10^6/uL (4.36-5.78); RDW 11.9 % (11.8-14.1); RDW-SD 37.9 fL; WBC 11.54 10^3/uL (4.4-10.8)
[2022-06-13 06:51] LABS: ESR 33 mm/hr (0-15)
[2022-06-13 06:56] LABS: Absolute Eosinophil Count 0.58 10^3/uL (0.0-0.7); Absolute Lymphocyte Count 1.96 10^3/uL (1.2-3.4); Absolute Monocyte Count 0.69 10^3/uL (0.1-0.8); Absolute Neutrophil Count 8.31 10^3/uL (1.2-6.7); Atypical Lymphocytes % 2; Bands % 6; Diff Comment Manual Differential; RBC Morphology Normal
[2022-06-13 06:57] LABS: C-Reactive Protein 3.03 mg/dL (0.0-0.3); Magnesium 2.2 mg/dL (1.8-2.4)
[2022-06-13 07:21] LABS: Anion Gap 6.5 mmol/L (3-11); BUN 12 mg/dL (7-18); CO2 27.5 mmol/L (21.0-32.0); CREATININE 0.8 mg/dL (0.70-1.30); Calcium 9.2 mg/dL (8.5-10.1); Chloride 103 mmol/L (98-107); Estimated GFR 121.34 (mL/min/1.73m2); Glucose 90 mg/dL (74-106); Potassium 4.3 mmol/L (3.5-5.1); Sodium 137 mmol/L (136-145)
[2022-06-13 07:25] LABS: Hemoglobin A1C 5.1 % (<5.7)
[2022-06-13 07:28] LABS: Procalcitonin < 0.1 ng/mL
[2022-06-13] MEDS: Omeprazole 20 MG CAPCR PO ×2 (07:40→20:27)
[2022-06-13 07:52] VITALS: BP 110/54; PULSE 69; RESP 16; TEMP 36.3; O2SAT 96
--- NOTE | 2022-06-13 09:02 | W.PM.PROGNOT ---
Date of Service Date of service: 06/13/22 Time of Service: 09:02 Assessment and Plan Assessment and plan (1) MRSA cellulitis: Status: Acute Assessment and plan: 32yo male who is incarcerated, presents with MRSA cellulitis, with multiple lesions over his back and arms. Failed output treatment with clindamycin, then IM rocephin + Bactrim. Vancomycin IV, through level today and titrated as per pharmacy consult, they will pursue further adjustment Bactroban cream TID to lesions. Wound pack draining wounds; right mid-back wound change bid Monitor clinically CT scan completed Surgical consult initiated and in progress Bacteremia in one bottle for MRSA TTE completed this AM, endocarditis/ valvular vegetations could not be confirmed; despite we will treat for bacteremia for 6 weeks from the first negative blood culture. We will draw blood cultures every 24- 48 hours until negative. The patient is C-MRSA, no intracardiac device , is not on HD, foci of infection are treated, has been afebrile from the CF; aforementioned factors would allow present management and will reevaluate as per negative results or persistent bacteremia Will investigate pain describe as spinal by patient for paraspinal right sided T12-L1 abscess pain; no fever and no neurological deficit or radiculopathy at this time.We want to consider further study as the results could influence the course of treatment. Considering MRI thoracic and lumbar spine CBC in AM BMP to monitor renal function while on Vancomycin Repeat blood cultures today Pharmacy consult as per protocol for Vancomycin Initiate oral probiotic/ Bio-K as care home IV antibiotics can increase the risk of nosocomial infections such as C-Diff. (2) Deep vein thrombosis (DVT) prophylaxis declined: Status: Acute Assessment and plan: Pt has risk factors for DVT: Apryl score of 5 with bacteremia, acute infection, BMI 46.8 We will continue Heparin 5000 units SQ Q8 hours (3) Discharge planning issues: Status: Acute Assessment and plan: Care management will determine patient's placement based on clinical progression and length of treatment See above Patient is from a correctional facility Discussed with Dr. Purdy Subjective Subjective Interval history since last seen: Constitutional: reports: Patient reports feeling better, denies chills or fever overnight, reports night sweats denies dizziness or lightheadedness HEENT: Denies swallowing difficulty, neck pain or neck swelling or stiffness Neuro: Denies weakness to extremities, denies new numbness Cardiac: Denies chest pain Resp: Reports: seldom dry non-productive cough, intermittent left sided chest pain on deep breathing persisting from many weeks ago Denies shortness of breath or difficulty breathing GI: Reports having a bowel movement yesterday Denies constipation,nausea or vomiting [place]:? Reports soreness to back and and trapezius muscle at 06/27 but denies needing pain medicine at this time, report right sided spine pain 06/27 Skin: Denies any other lesions on his body. : Report light yellow clear urine Denies dysuria Exam Narrative Exam Narrative: Constitutional: Alert and oriented x3, t, HEENT: Normocephalic, no adenopathy,conjugated gaze,eyelids symmetrical without lesions, discharge, or swelling, pin, moist and intact oral mucosa, no swelling to neck soft tissue. Neurologic: Cranial nerves II-XII intact. Alert and oriented x 3;no focal neurological deficit, conjugated gaze cardiac:S1, S2, no murmur, pulses are positive to extremities. trace edema to left leg, 1+ edema to right leg Resp: Lungs clear to auscultation bilaterally Abdomen: Soft, large, non-distended, : No CVA tenderness Musculoskeletal:Normal gait, 5/5 strength to all four extremities.No paresthesia to lower extremities Skin: 5 lesions/ abcesses to back: left trapezius, right medial sacpula,left scapula, right trapezius, right serratus-oblique region. wound are all dressed with mepilex, right medial sacpula is packed. right paraspinal serratus-oblique region showed increased tenderness on palpation. Hematologic/Lymphatic: No ecchymosis, no lymphadenopathy.? Objective Last Vital Signs Temp 97.3 F L 06/13/22 07:52 Pulse 69 06/13/22 07:52 Resp 16 06/13/22 07:52 BP 110/54 L 06/13/22 07:52 Pulse Ox 96 06/13/22 07:52 Laboratory Results - last 24 hr 06/12/22 06/13/22 06/13/22 17:07 06:00 06:18 WBC RBC Hgb Hct MCV MCH MCHC RDW Plt Count MPV Immature Gran % Neutrophils % Band Neutrophils % Lymphocytes % Atypical Lymphs % Monocytes % Eosinophils % Basophils % Nucleated RBC % Absolute Neutrophils Absolute Lymphocytes Absolute Monocytes Absolute Eosinophils Absolute Basophils RBC Morphology ESR 33 H Sodium Potassium Chloride Carbon Dioxide Anion Gap BUN Creatinine Est GFR (CKD-EPI 2020) Glucose Hemoglobin A1c Calcium Magnesium 2.2 C-Reactive Protein 3.03 H Procalcitonin Urine Opiates Screen Negative Urine Methadone Screen Negative Ur Barbiturates Screen Negative Ur Tricyclics Screen Negative Ur Amphetamines Screen Negative U Benzodiazepines Scrn Negative Urine Cocaine Screen Negative Ur THC Screen Negative 06/13/22 06/13/22 06/13/22 06:18 06:18 06:18 WBC 11.54 H RBC 4.13 L Hgb 12.2 L Hct 36.4 L MCV 88 MCH 29.5 MCHC 33.5 RDW 11.9 Plt Count 394 MPV 9.0 Immature Gran % 0.0 Neutrophils % 66.0 Band Neutrophils % 6 Lymphocytes % 15.0 Atypical Lymphs % 2 Monocytes % 6.0 Eosinophils % 5.0 Basophils % 0.0 Nucleated RBC % 0.0 Absolute Neutrophils 8.31 H Absolute Lymphocytes 1.96 Absolute Monocytes 0.69 Absolute Eosinophils 0.58 Absolute Basophils 0.00 RBC Morphology Normal ESR Sodium 137 Potassium 4.3 Chloride 103 Carbon Dioxide 27.5 Anion Gap 6.5 BUN 12 Creatinine 0.8 Est GFR (CKD-EPI 2020) 121.34 Glucose 90 Hemoglobin A1c Calcium 9.2 Magnesium C-Reactive Protein Procalcitonin < 0.1 Urine Opiates Screen Urine Methadone Screen Ur Barbiturates Screen Ur Tricyclics Screen Ur Amphetamines Screen U Benzodiazepines Scrn Urine Cocaine Screen Ur THC Screen 06/13/22 06:18 WBC RBC Hgb Hct MCV MCH MCHC RDW Plt Count MPV Immature Gran % Neutrophils % Band Neutrophils % Lymphocytes % Atypical Lymphs % Monocytes % Eosinophils % Basophils % Nucleated RBC % Absolute Neutrophils Absolute Lymphocytes Absolute Monocytes Absolute Eosinophils Absolute Basophils RBC Morphology ESR Sodium Potassium Chloride Carbon Dioxide Anion Gap BUN Creatinine Est GFR (CKD-EPI 2020) Glucose Hemoglobin A1c 5.1 Calcium Magnesium C-Reactive Protein Procalcitonin Urine Opiates Screen Urine Methadone Screen Ur Barbiturates Screen Ur Tricyclics Screen Ur Amphetamines Screen U Benzodiazepines Scrn Urine Cocaine Screen Ur THC Screen Time Spent with Patient Time Spent with Patient: >50 minutes Time was spent: preparing to see the patient(eg.review tests) and obtaining and/or reviewing separately [facility]
[2022-06-13] MEDS: Mupirocin 2% 15 GM TUBE TP ×3 (10:24→20:34)
[2022-06-13 11:22] LABS: Vancomycin, Trough 14.6 ug/mL (10.0-20.0)
[2022-06-13] MEDS: VANCOMYCIN/WATER (PEG) 2 GM/400 ML BAG IVPB ×2 (12:26→23:07)
--- NOTE | 2022-06-13 12:29 | PDOC.CMPRO ---
- If Service Date Differs Date of service: 06/13/22 Time of Service: 12:29 Care Management Progress Note S/O: Pedro was sitting up in bed when CM met with him. He stated that he is feeling good today. CM reviewed his plan, and discussed the potential for him to be transferred to another fpc with an inpatient medical unit for custodial antibiotics. Per report, his blood cultures remain positive, therefore he is not ready for discharge to that facility. Once he is medically stable, CM will contact Janes [phone], from [facility], who will coordinate this transfer. CM will continue to follow. A: Pedro is a 32 year old male admitted to [facility] on 06/11/22 for pustular lesions, cellulitis. P: Anticipate Pedro will return to the [place] correctional facility vs an inpatient unit at another fpc/facility, if indicated. [place] [facility] will coordinate his secure transport. CM will continue to support discharge planning considerations.
[2022-06-13] MEDS: HYDROmorphone 2 MG/ML VIAL (15:12)
[2022-06-13] MEDS: Normal Saline Flush 10 ML SYR IVP (15:16)
--- NOTE | 2022-06-13 15:26 | PGE_ITS ---
Date of Service Date of service: 06/13/22 Time of Service: 15:26 Assessment and Plan Assessment and plan (1) Abscess of multiple sites: Status: Acute Assessment and plan: Due to MRSA, having failed outpatient treatment. Continue vancomycin. Surgery is following to see if the upper L back collection needs to be I&D'ed. (2) Gram-positive cocci bacteremia: Status: Acute Assessment and plan: Due to MRSA, 1 bottle/4. Echo w/o vegetations. Await repeat blood cultures. Anticipate 6 weeks of abx from the 1st negative blood cultures. Obtain MRI thoracic and lumbar spine to ensure no vertebral OM/septic discitis/epidural abscess. (3) MRSA cellulitis: Status: Acute Assessment and plan: As above (4) Obesity, morbid, BMI 40.0-49.9: Status: Acute Assessment and plan: A1C 5.1. (5) Discharge planning issues: Status: Acute Assessment and plan: Full code Discussed with care management: will require desktop support associate antibiotics. May require transition to a medical facility for encarcerated patients. (6) DVT prophylaxis: Status: Acute Assessment and plan: SC heparin. Subjective Subjective Interval history since last seen: Mr Hoang reports central mid/lower back pain x 1 week. He denies difficulty with urination/defecation and denies numbness in genital region. He denies paresthesias/weakness/numbness in his legs. He denies dizziness, states his chest pain anteriorly is getting better, denies SOB and nausea. He agrees to having an MRI. Exam Narrative Exam Narrative: General: Pleasant male who is sitting up in bed, multiple dressings on his back Skin: The right-sided upper back dressing is partially saturated. L-sided paraspinal area of induration is visibly unchanged; however, per POCUS, now has a fluid collection. HEENT: EOMI, MMM Heart: RRR, no m/r/g Lungs: CTAB Spine: TTP over T10 Abdomen: soft, nontender, nondistended Extremities: trace edema LLE, +1 edema RLE, able to move BLEs, he is cuffed to the bed on his RLE. Objective Last Vital Signs Temp 36.3 C L 06/13/22 07:52 Pulse 69 06/13/22 07:52 Resp 16 06/13/22 07:52 BP 110/54 L 06/13/22 07:52 Pulse Ox 96 06/13/22 07:52 Laboratory Results - last 24 hr 06/12/22 06/13/22 06/13/22 17:07 06:00 06:18 WBC RBC Hgb Hct MCV MCH MCHC RDW Plt Count MPV Immature Gran % Neutrophils % Band Neutrophils % Lymphocytes % Atypical Lymphs % Monocytes % Eosinophils % Basophils % Nucleated RBC % Absolute Neutrophils Absolute Lymphocytes Absolute Monocytes Absolute Eosinophils Absolute Basophils RBC Morphology ESR 33 H Sodium Potassium Chloride Carbon Dioxide Anion Gap BUN Creatinine Est GFR (CKD-EPI 2020) Glucose Hemoglobin A1c Calcium Magnesium 2.2 C-Reactive Protein 3.03 H Procalcitonin Vancomycin Trough Urine Opiates Screen Negative Urine Methadone Screen Negative Ur Barbiturates Screen Negative Ur Tricyclics Screen Negative Ur Amphetamines Screen Negative U Benzodiazepines Scrn Negative Urine Cocaine Screen Negative Ur THC Screen Negative 06/13/22 06/13/22 06/13/22 06:18 06:18 06:18 WBC 11.54 H RBC 4.13 L Hgb 12.2 L Hct 36.4 L MCV 88 MCH 29.5 MCHC 33.5 RDW 11.9 Plt Count 394 MPV 9.0 Immature Gran % 0.0 Neutrophils % 66.0 Band Neutrophils % 6 Lymphocytes % 15.0 Atypical Lymphs % 2 Monocytes % 6.0 Eosinophils % 5.0 Basophils % 0.0 Nucleated RBC % 0.0 Absolute Neutrophils 8.31 H Absolute Lymphocytes 1.96 Absolute Monocytes 0.69 Absolute Eosinophils 0.58 Absolute Basophils 0.00 RBC Morphology Normal ESR Sodium 137 Potassium 4.3 Chloride 103 Carbon Dioxide 27.5 Anion Gap 6.5 BUN 12 Creatinine 0.8 Est GFR (CKD-EPI 2020) 121.34 Glucose 90 Hemoglobin A1c Calcium 9.2 Magnesium C-Reactive Protein Procalcitonin < 0.1 Vancomycin Trough Urine Opiates Screen Urine Methadone Screen Ur Barbiturates Screen Ur Tricyclics Screen Ur Amphetamines Screen U Benzodiazepines Scrn Urine Cocaine Screen Ur THC Screen 06/13/22 06/13/22 06:18 11:00 WBC RBC Hgb Hct MCV MCH MCHC RDW Plt Count MPV Immature Gran % Neutrophils % Band Neutrophils % Lymphocytes % Atypical Lymphs % Monocytes % Eosinophils % Basophils % Nucleated RBC % Absolute Neutrophils Absolute Lymphocytes Absolute Monocytes Absolute Eosinophils Absolute Basophils RBC Morphology ESR Sodium Potassium Chloride Carbon Dioxide Anion Gap BUN Creatinine Est GFR (CKD-EPI 2020) Glucose Hemoglobin A1c 5.1 Calcium Magnesium C-Reactive Protein Procalcitonin Vancomycin Trough 14.6 Urine Opiates Screen Urine Methadone Screen Ur Barbiturates Screen Ur Tricyclics Screen Ur Amphetamines Screen U Benzodiazepines Scrn Urine Cocaine Screen Ur THC Screen Objective Narrative Objective Narrative: CT chest w/ contrast: 1. Subcutaneous findings of the upper back both sides right more than left consistent with infectious/abscesses.? There is no radiopaque foreign body 2. Significant improvement in the appearance of both lung herrera when compared to the prior MRI scan of July 2011.? The bilateral infiltrates have cleared and there presently no pleural effusions. Echo: Normal study. LV size and systolic function is normal. The left ventricular ejection fraction is 59% by Gonzalez's biplane. RV systolic function is normal. No significant valvular disease noted. Time Spent with Patient Time Spent with Patient: 25-34 minutes Time was spent: preparing to see the patient(eg.review tests), obtaining and/or reviewing separately otained hiistory, ordering medications,tests, procedures, referring, communicating with other health intensive care medicine specialist, indepentently interpreting results, counseling the patient and care coordination
[2022-06-13 15:40] VITALS: BP 114/78; PULSE 73; RESP 16; TEMP 36.7; O2SAT 96
--- NOTE | 2022-06-13 16:01 | W.PM.PROGNOT ---
Date of Service Date of service: 06/13/22 Time of Service: 16:01 Assessment and Plan Assessment and plan (1) MRSA cellulitis: Status: Acute Assessment and plan: 32yo male who is incarcerated, presents with MRSA cellulitis, with multiple lesions over his back and arms. Failed outpt treatment with clindamycin, then IM rocephin + Bactrim. continue Vancomycin Bactoban cream to lesions Warm compresses to lesions that haven't opened yet Would pack draining wounds; right mid-back wound change bid Monitor clinically CT scan reviewed with radiolgist, Dr. Rubio. He does not beleive that there is underlying myositis or signs of necrotizing soft tissue infection Subjective Subjective Interval history since last seen: Pt without new complaints. Denies new fevers/chills. Tolerating diet. Exam Const General: cooperative, healthy appearing, comfortable and no acute distress Nutritional Appearance: average body habitus and well nourished Orientation: alert, awake and oriented x3 Resp Effort & Inspection: normal respiratory effort and able to speak in complete sentences GI Inspection: normal to inspection Palpation: soft and nontender Skin Lesions: lesion noted (Multiple small areas of cellulitis/inflammation over back and arm) and other Other: left trapezius and right medial sub-scapular wounds draining pus; left trapezius wound was probed and found to be shallow with minimal purulence, mostly cellulitic; right medial subscapular wound was probed and min medial loculations encountered and broken up--wound does not extend over spine; small grouping of 3 lesions over left scapula without definite fluctuance or collection Neuro Cognition: normal cognition Speech: speech normal Psych Mental Status: mental status grossly normal Thought Process: normal Thought Content: normal Objective Last Vital Signs Temp 98.0 F 06/13/22 15:40 Pulse 73 06/13/22 15:40 Resp 16 06/13/22 15:40 BP 114/78 06/13/22 15:40 Pulse Ox 96 06/13/22 15:40 Laboratory Results - last 24 hr 06/12/22 06/13/22 06/13/22 17:07 06:00 06:18 WBC RBC Hgb Hct MCV MCH MCHC RDW Plt Count MPV Immature Gran % Neutrophils % Band Neutrophils % Lymphocytes % Atypical Lymphs % Monocytes % Eosinophils % Basophils % Nucleated RBC % Absolute Neutrophils Absolute Lymphocytes Absolute Monocytes Absolute Eosinophils Absolute Basophils RBC Morphology ESR 33 H Sodium Potassium Chloride Carbon Dioxide Anion Gap BUN Creatinine Est GFR (CKD-EPI 2020) Glucose Hemoglobin A1c Calcium Magnesium 2.2 C-Reactive Protein 3.03 H Procalcitonin Vancomycin Trough Urine Opiates Screen Negative Urine Methadone Screen Negative Ur Barbiturates Screen Negative Ur Tricyclics Screen Negative Ur Amphetamines Screen Negative U Benzodiazepines Scrn Negative Urine Cocaine Screen Negative Ur THC Screen Negative 06/13/22 06/13/22 06/13/22 06:18 06:18 06:18 WBC 11.54 H RBC 4.13 L Hgb 12.2 L Hct 36.4 L MCV 88 MCH 29.5 MCHC 33.5 RDW 11.9 Plt Count 394 MPV 9.0 Immature Gran % 0.0 Neutrophils % 66.0 Band Neutrophils % 6 Lymphocytes % 15.0 Atypical Lymphs % 2 Monocytes % 6.0 Eosinophils % 5.0 Basophils % 0.0 Nucleated RBC % 0.0 Absolute Neutrophils 8.31 H Absolute Lymphocytes 1.96 Absolute Monocytes 0.69 Absolute Eosinophils 0.58 Absolute Basophils 0.00 RBC Morphology Normal ESR Sodium 137 Potassium 4.3 Chloride 103 Carbon Dioxide 27.5 Anion Gap 6.5 BUN 12 Creatinine 0.8 Est GFR (CKD-EPI 2020) 121.34 Glucose 90 Hemoglobin A1c Calcium 9.2 Magnesium C-Reactive Protein Procalcitonin < 0.1 Vancomycin Trough Urine Opiates Screen Urine Methadone Screen Ur Barbiturates Screen Ur Tricyclics Screen Ur Amphetamines Screen U Benzodiazepines Scrn Urine Cocaine Screen Ur THC Screen 06/13/22 06/13/22 06:18 11:00 WBC RBC Hgb Hct MCV MCH MCHC RDW Plt Count MPV Immature Gran % Neutrophils % Band Neutrophils % Lymphocytes % Atypical Lymphs % Monocytes % Eosinophils % Basophils % Nucleated RBC % Absolute Neutrophils Absolute Lymphocytes Absolute Monocytes Absolute Eosinophils Absolute Basophils RBC Morphology ESR Sodium Potassium Chloride Carbon Dioxide Anion Gap BUN Creatinine Est GFR (CKD-EPI 2020) Glucose Hemoglobin A1c 5.1 Calcium Magnesium C-Reactive Protein Procalcitonin Vancomycin Trough 14.6 Urine Opiates Screen Urine Methadone Screen Ur Barbiturates Screen Ur Tricyclics Screen Ur Amphetamines Screen U Benzodiazepines Scrn Urine Cocaine Screen Ur THC Screen Objective Narrative Objective Narrative: CT CHEST (06/12/2022): INDINGS: CHEST: EXTRA THORACIC SOFT TISSUES: There are multiple areas of subcutaneous abnormality both sides of the upper back which are both cutaneous and extending through the subcutaneous layer and more prominent right of center.? On the right side there are few gas bubbles therein, consistent with abscess.? This area measures approximately 5 cm across and extends from the skin to the surface of the ipsilateral right trapezius muscle.? On the opposite-left side there is a similar but smaller finding higher up there does not appear to be evidence of abscess within the actual trapezius musculature on either side.? There is overlying skin thickening-probable cellulitis. LUNGS: Appearance of the lungs has significantly improved from July 2021.? The previously present bilateral infiltrates resolved.? Minimal increased markings are noted lung bases but no confluent infiltrates nor pleural effusions.? No ominous pulmonary nodules.? No significant focal findings in trachea and mainstem bronchi.? MEDIASTINUM: There is no hilar nor mediastinal adenopathy. Visualized thyroid unremarkable. CARDIAC: Heart size is normal.? There is no pericardial effusion.Caliber of the thoracic aorta is within normal limits. VISUALIZED UPPER ABDOMEN:There are no significant adrenal masses. ? OSSEOUS: No significant osseous lesions.. IMPRESSION: 1. Subcutaneous findings of the upper back both sides right more than left consistent with infectious/abscesses.? There is no radiopaque foreign body 2. Significant improvement in the appearance of both lung herrera when compared to the prior MRI scan of July 2011.? The bilateral infiltrates have cleared and there presently no pleural effusions. Time Spent with Patient Time Spent with Patient: 25-34 minutes Time was spent: preparing to see the patient(eg.review tests), obtaining and/or reviewing separately otained hiistory, ordering medications,tests, procedures, referring, communicating with other health memory care program director, indepentently interpreting results and counseling the patient
[2022-06-13] MEDS: HYDROmorphone 2 MG/ML SYR 0.5 MG IVP (20:27)
[2022-06-13 23:02] VITALS: BP 124/79; PULSE 70; RESP 14; TEMP 36.3; O2SAT 97
[2022-06-14] MEDS: Heparin 5,000 UNITS/ML VIAL 5000 UNITS SC ×3 (06:11→20:50)
[2022-06-14 06:14] LABS: Abs Immature Grans 1.36 10^3/uL (0.0-0.06); HCT 36.7 % (40.0-50.0); HGB 12.5 g/dL (13.5-17.5); MCH 29.1 pg (27.0-33.0); MCHC 34.1 % (32.0-36.0); MCV 86 fL (80-95); MPV 8.9 fL (8.0-11.0); Platelet Count 397 10^3/uL (130-400); RBC 4.29 10^6/uL (4.36-5.78); RDW 11.8 % (11.8-14.1); RDW-SD 36.6 fL; WBC 11.73 10^3/uL (4.4-10.8)
[2022-06-14 06:34] LABS: Absolute Basophil Count 0.12 10^3/uL (0.0-0.2); Absolute Eosinophil Count 0.35 10^3/uL (0.0-0.7); Absolute Lymphocyte Count 2.82 10^3/uL (1.2-3.4); Absolute Monocyte Count 1.17 10^3/uL (0.1-0.8); Absolute Neutrophil Count 6.92 10^3/uL (1.2-6.7); Atypical Lymphocytes % 3; Diff Comment Manual Differential; Metamyelocytes % 1; Myelocytes % 2
[2022-06-14 06:39] LABS: Anion Gap 6.9 mmol/L (3-11); BUN 14 mg/dL (7-18); C-Reactive Protein 1.87 mg/dL (0.0-0.3); CO2 28.1 mmol/L (21.0-32.0); CREATININE 0.8 mg/dL (0.70-1.30); Calcium 9.1 mg/dL (8.5-10.1); Chloride 103 mmol/L (98-107); Estimated GFR 121.34 (mL/min/1.73m2); Glucose 89 mg/dL (74-106); Potassium 4.2 mmol/L (3.5-5.1); Sodium 138 mmol/L (136-145)
[2022-06-14 07:00] VITALS: BP 117/73; PULSE 78; RESP 16; TEMP 36.8; O2SAT 97
[2022-06-14] MEDS: Omeprazole 20 MG CAPCR PO ×2 (07:39→20:50)
[2022-06-14] MEDS: HYDROmorphone 2 MG/ML SYR 0.5 MG IVP ×3 (08:17→20:50)
[2022-06-14] MEDS: Normal Saline Flush 10 ML SYR IVP ×2 (08:18→15:27)
[2022-06-14] MEDS: Mupirocin 2% 15 GM TUBE TP ×3 (09:19→23:12)
[2022-06-14] MEDS: VANCOMYCIN/WATER (PEG) 2 GM/400 ML BAG IVPB ×2 (12:35→23:02)
--- NOTE | 2022-06-14 13:24 | W.PM.PROGNOT ---
Date of Service Date of service: 06/14/22 Time of Service: 13:24 Assessment and Plan Assessment and plan (1) MRSA cellulitis: Status: Acute Assessment and plan: 32yo male who is incarcerated, presents with MRSA cellulitis, with multiple lesions/abscesses over his back and arms. Failed outpt treatment with clindamycin, then IM rocephin + Bactrim. Cellulitus is improving over back lesions. No need for abscess drainage appreciated at this time. continue Vancomycin Bactoban cream to lesions Warm compresses to lesions that haven't opened yet Would pack draining wounds; left trapezius and right mid-back wound change bid CT scan reviewed with radiolgist, Dr. Rubio. He does not beleive that there is underlying myositis or signs of necrotizing soft tissue infection Subjective Subjective Interval history since last seen: Pt is without new complaints. Still having some midline thoracolumbar pain over the spine. Not in an area near a known cutaneous abscess. Exam Const General: cooperative, healthy appearing, comfortable and no acute distress Nutritional Appearance: average body habitus and well nourished Orientation: alert, awake and oriented x3 Resp Effort & Inspection: normal respiratory effort and able to speak in complete sentences GI Inspection: normal to inspection Palpation: soft and nontender Skin Lesions: lesion noted (Multiple small areas of cellulitis/inflammation over back and arm) and other Other: left trapezius and right medial sub-scapular wounds draining pus; left trapezius wound packed with decreased cellulitis; right medial subscapular wound with overlying dressing, surrounding induration improved; small grouping of 3 lesions over left scapula examine with Dr. Purdy, by ultrasound. Cellulitus improved, no collection >0.5cm seen Neuro Cognition: normal cognition Speech: speech normal Psych Mental Status: mental status grossly normal Thought Process: normal Thought Content: normal Objective Last Vital Signs Temp 98.2 F 06/14/22 07:00 Pulse 78 06/14/22 07:00 Resp 16 06/14/22 07:00 BP 117/73 06/14/22 07:00 Pulse Ox 97 06/14/22 07:00 Laboratory Results - last 24 hr 06/14/22 06/14/22 05:55 05:55 WBC 11.73 H RBC 4.29 L Hgb 12.5 L Hct 36.7 L MCV 86 MCH 29.1 MCHC 34.1 RDW 11.8 Plt Count 397 MPV 8.9 Immature Gran % 0.0 Neutrophils % 59.0 Lymphocytes % 21.0 Atypical Lymphs % 3 Monocytes % 10.0 Eosinophils % 3.0 Basophils % 1.0 Metamyelocytes % 1 Myelocytes % 2 Nucleated RBC % 0.0 Absolute Neutrophils 6.92 H Absolute Lymphocytes 2.82 Absolute Monocytes 1.17 H Absolute Eosinophils 0.35 Absolute Basophils 0.12 Sodium 138 Potassium 4.2 Chloride 103 Carbon Dioxide 28.1 Anion Gap 6.9 BUN 14 Creatinine 0.8 Est GFR (CKD-EPI 2020) 121.34 Glucose 89 Calcium 9.1 Magnesium 2.0 C-Reactive Protein 1.87 H Time Spent with Patient Time Spent with Patient: <25 minutes Time was spent: preparing to see the patient(eg.review tests), obtaining and/or reviewing separately otained hiistory, referring, communicating with other health adult daycare coordinator, indepentently interpreting results and counseling the patient
[2022-06-14 15:18] VITALS: BP 146/76; PULSE 71; RESP 16; TEMP 36.5; O2SAT 96
--- NOTE | 2022-06-14 16:32 | W.PM.PROGNOT ---
Date of Service Date of service: 06/14/22 Time of Service: 13:00 Assessment and Plan Assessment and plan (1) MRSA cellulitis: Status: Acute Assessment and plan: 32yo male who is incarcerated, presents with MRSA cellulitis, with multiple lesions over his back and arms. Failed output treatment with clindamycin, then IM rocephin + Bactrim. Vancomycin IV, through level today and titrated as per pharmacy consult, they will pursue further adjustment Bactroban cream TID to lesions. Wound pack draining wounds; right mid-back wound change bid Monitor clinically Surgical consult initiated and in progress Bacteremia in one bottle for MRSA TTE completed this AM, endocarditis/ valvular vegetations could not be confirmed; despite we will treat for bacteremia for 6 weeks from the first negative blood culture. Blood culture is negative today and if no further growth we will time the length of treatment from the date of the blood draw which was 06/13/2022 for 6 weeks. The patient is C-MRSA, no intracardiac device , is not on HD, foci of infection are treated, has been afebrile from the ; aforementioned factors would allow present management and will reevaluate as per negative results or persistent bacteremia Will investigate pain describe as spinal by patient for paraspinal right sided T12-L1 abscess pain; no fever and no neurological deficit or radiculopathy at this time.We want to consider further study as the results could influence the course of treatment. Considering MRI thoracic and lumbar spine CBC in AM BMP to monitor renal function while on Vancomycin Pharmacy consult as per protocol for Vancomycin Initiate oral probiotic/ Bio-K started: [facility] IV antibiotics can increase the risk of nosocomial infections such as C-Diff. (2) On deep vein thrombosis (DVT) prophylaxis: Status: Acute (3) Discharge planning issues: Status: Acute Assessment and plan: Care management will determine patient's placement based on clinical progression and length of treatment See above Patient is from a correctional facility Discussed with Dr. Purdy Subjective Subjective Interval history since last seen: Constitutional: Patient is in bed during this interview reports: Patient reports pain 3/10 to abscesses but does not require pain medicine at this time. He denies chills or fever overnight, reports intermittent night sweats denies dizziness or lightheadedness HEENT: Reports feeling of dryness and irritation to left eye Denies swallowing difficulty, neck pain or neck swelling or stiffness Neuro: Denies weakness to extremities, denies new numbness Cardiac: Denies chest pain Resp: Reports: seldom dry non-productive cough, no chest pain on deep breathing Denies shortness of breath or difficulty breathing GI: Reports having a bowel movement yesterday Denies constipation,nausea or vomiting Musk:? Reports soreness to right/mid lower back T10-L1 and trapezes muscle at 3/10 but denies needing pain medicine at this time, report right sided spine pain 2/10 Skin: Denies any other lesions on his body. : Report light yellow clear urine Denies dysuria Exam Narrative Exam Narrative: Constitutional: Alert and oriented x3, HEENT: Normocephalic, no adenopathy,conjugated gaze,eyelids symmetrical without lesions, discharge, or swelling, pin, moist and intact oral mucosa, no swelling to neck soft tissue. Neurologic: Cranial nerves II, III, intact. Alert and oriented x 3;no focal neurological deficit, conjugated gaze cardiac:S1, S2, no murmur, pulses are positive to extremities. trace edema to left leg, 1+ edema to right leg Resp: Lungs clear to auscultation bilaterally Abdomen: Soft, large, non-distended,non-tender : No CVA tenderness Musculoskeletal:Normal gait, 5/5 strength to all four extremities.No paresthesia to lower extremities Skin: 5 lesions/ abcesses to back: left trapezius, right medial sacpula,left scapula, right trapezius, right serratus-oblique region. wound are all dressed with mepilex, right medial sacpula is packed. right paraspinal serratus-oblique region showed increased tenderness on palpation. ? Objective Last Vital Signs Temp 97.7 F 06/14/22 15:18 Pulse 71 06/14/22 15:18 Resp 16 06/14/22 15:18 BP 146/76 H 06/14/22 15:18 Pulse Ox 96 06/14/22 15:18 Laboratory Results - last 24 hr 06/14/22 06/14/22 05:55 05:55 WBC 11.73 H RBC 4.29 L Hgb 12.5 L Hct 36.7 L MCV 86 MCH 29.1 MCHC 34.1 RDW 11.8 Plt Count 397 MPV 8.9 Immature Gran % 0.0 Neutrophils % 59.0 Lymphocytes % 21.0 Atypical Lymphs % 3 Monocytes % 10.0 Eosinophils % 3.0 Basophils % 1.0 Metamyelocytes % 1 Myelocytes % 2 Nucleated RBC % 0.0 Absolute Neutrophils 6.92 H Absolute Lymphocytes 2.82 Absolute Monocytes 1.17 H Absolute Eosinophils 0.35 Absolute Basophils 0.12 Sodium 138 Potassium 4.2 Chloride 103 Carbon Dioxide 28.1 Anion Gap 6.9 BUN 14 Creatinine 0.8 Est GFR (CKD-EPI 2020) 121.34 Glucose 89 Calcium 9.1 Magnesium 2.0 C-Reactive Protein 1.87 H Time Spent with Patient Time Spent with Patient: 35-49 minutes Time was spent: preparing to see the patient(eg.review tests) and obtaining and/or reviewing separately [facility]
--- NOTE | 2022-06-14 18:55 | W.PM.PROGNOT ---
Date of Service Date of service: 06/14/22 Time of Service: 12:30 Assessment and Plan Assessment and plan (1) Abscess of multiple sites: Status: Acute Assessment and plan: Due to MRSA, having failed outpatient treatment. I think these resulted in bacteremia rather than the other way around. Continue vancomycin. Surgery is following to see if the upper L back collection needs to be I&D'ed. (2) Gram-positive cocci bacteremia: Status: Acute Assessment and plan: Due to MRSA, 1 bottle/4. Echo w/o vegetations. Repeat blood cultures negative at 24 hrs. Anticipate 6 weeks of abx from the 1st negative blood cultures if MRI negative. Await MRI thoracic and lumbar spine to ensure no vertebral OM/septic discitis/epidural abscess. (3) MRSA cellulitis: Status: Acute Assessment and plan: As above (4) Obesity, morbid, BMI 40.0-49.9: Status: Chronic Assessment and plan: A1C 5.1. Encourage life-style changes. 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 May require transition to a medical facility for encarcerated patients. (6) DVT prophylaxis: Status: Acute Assessment and plan: SC heparin. Subjective Subjective Interval history since last seen: Pedro still has pain in his wounds/abscesses, especially with dressing changes. His back continues to hurt him. He denies dizziness, shortness of breath, nausea. Chest pain is better. Exam Narrative Exam Narrative: General: Pleasant male who is sitting up in bed, multiple dressings on his back, A&Ox3, does not appear uncomfortable Skin: The right-sided upper back dressing is partially saturated. L-sided paraspinal area of induration is less erythematous and indurated; A fluid collection by POCUS is about 0.5 cm in diameter. HEENT: EOMI, MMM Heart: RRR, no m/r/g Lungs: CTAB Spine: TTP over T10 Abdomen: soft, nontender, nondistended Extremities: trace edema LLE, +1 edema RLE, able to move BLEs, he is cuffed to the bed on his RLE. Objective Last Vital Signs Temp 36.5 C 06/14/22 15:18 Pulse 71 06/14/22 15:18 Resp 16 06/14/22 15:18 BP 146/76 H 06/14/22 15:18 Pulse Ox 96 06/14/22 15:18 Laboratory Results - last 24 hr 06/14/22 06/14/22 05:55 05:55 WBC 11.73 H RBC 4.29 L Hgb 12.5 L Hct 36.7 L MCV 86 MCH 29.1 MCHC 34.1 RDW 11.8 Plt Count 397 MPV 8.9 Immature Gran % 0.0 Neutrophils % 59.0 Lymphocytes % 21.0 Atypical Lymphs % 3 Monocytes % 10.0 Eosinophils % 3.0 Basophils % 1.0 Metamyelocytes % 1 Myelocytes % 2 Nucleated RBC % 0.0 Absolute Neutrophils 6.92 H Absolute Lymphocytes 2.82 Absolute Monocytes 1.17 H Absolute Eosinophils 0.35 Absolute Basophils 0.12 Sodium 138 Potassium 4.2 Chloride 103 Carbon Dioxide 28.1 Anion Gap 6.9 BUN 14 Creatinine 0.8 Est GFR (CKD-EPI 2020) 121.34 Glucose 89 Calcium 9.1 Magnesium 2.0 C-Reactive Protein 1.87 H Time Spent with Patient Time Spent with Patient: 25-34 minutes Time was spent: preparing to see the patient(eg.review tests), obtaining and/or reviewing separately otained hiistory, ordering medications,tests, procedures, referring, communicating with other health home health care provider, indepentently interpreting results, counseling the patient and care coordination
[2022-06-14 23:20] VITALS: BP 134/77; PULSE 72; RESP 16; TEMP 36.9; O2SAT 97
[2022-06-15] MEDS: Heparin 5,000 UNITS/ML VIAL 5000 UNITS SC ×3 (06:00→21:25)
[2022-06-15 06:07] LABS: MCH 29.3 pg (27.0-33.0)
[2022-06-15 06:40] LABS: Abs Immature Grans 1.25 10^3/uL (0.0-0.06); HCT 37.1 % (40.0-50.0); HGB 12.5 g/dL (13.5-17.5); MCHC 33.7 % (32.0-36.0); MCV 87 fL (80-95); MPV 9.2 fL (8.0-11.0); Platelet Count 383 10^3/uL (130-400); RBC 4.27 10^6/uL (4.36-5.78); RDW 11.9 % (11.8-14.1); WBC 10.91 10^3/uL (4.4-10.8)
[2022-06-15 06:45] LABS: Absolute Eosinophil Count 0.11 10^3/uL (0.0-0.7); Absolute Lymphocyte Count 2.18 10^3/uL (1.2-3.4); Absolute Monocyte Count 0.87 10^3/uL (0.1-0.8); Absolute Neutrophil Count 7.31 10^3/uL (1.2-6.7); Bands % 1
[2022-06-15 06:46] LABS: Diff Comment Manual Differential; Metamyelocytes % 3; Myelocytes % 3; RBC Morphology Normal
[2022-06-15 06:57] LABS: Anion Gap 7.1 mmol/L (3-11); BUN 16 mg/dL (7-18); C-Reactive Protein 1.23 mg/dL (0.0-0.3); CO2 27.9 mmol/L (21.0-32.0); CREATININE 0.8 mg/dL (0.70-1.30); Calcium 9.2 mg/dL (8.5-10.1); Chloride 103 mmol/L (98-107); Estimated GFR 121.34 (mL/min/1.73m2); Glucose 89 mg/dL (74-106); Magnesium 1.9 mg/dL (1.8-2.4); Potassium 4.3 mmol/L (3.5-5.1); Sodium 138 mmol/L (136-145)
[2022-06-15] MEDS: HYDROmorphone 2 MG/ML SYR 0.5 MG IVP ×3 (07:53→21:56)
[2022-06-15] MEDS: Omeprazole 20 MG CAPCR PO ×2 (07:54→21:24)
[2022-06-15] MEDS: Normal Saline Flush 10 ML SYR IVP ×2 (07:55→21:25)
[2022-06-15 08:24] VITALS: BP 99/64; PULSE 66; RESP 18; TEMP 36.1; O2SAT 98
[2022-06-15] MEDS: Mupirocin 2% 15 GM TUBE TP ×3 (09:10→21:24)
[2022-06-15] MEDS: VANCOMYCIN/WATER (PEG) 2 GM/400 ML BAG IVPB (12:17)
[2022-06-15 15:37] VITALS: BP 133/69; PULSE 81; RESP 18; TEMP 36.3; O2SAT 98
--- NOTE | 2022-06-15 18:29 | PGE_ITS ---
Date of Service Date of service: 06/15/22 Time of Service: 18:29 Assessment and Plan Assessment and plan (1) Abscess of multiple sites: Status: Acute Assessment and plan: Abscess' on his back, 1/4 positive BC for MRSA; repeat BC neg x 48h Continue vancomycin. Surgery is following to see if the upper L back collection needs to be I&D'ed. MRI 06/16/22 (2) Gram-positive cocci bacteremia: Status: Acute Assessment and plan: Due to MRSA, 1 bottle/4. Echo w/o vegetations. Repeat blood cultures negative at 48 hrs. Anticipate 6 weeks of abx from the 1st negative blood cultures if MRI 06/16/22 is negative. Await MRI thoracic and lumbar spine to ensure no vertebral OM/septic discitis/epidural abscess. (3) MRSA cellulitis: Status: Acute Assessment and plan: As above (4) Obesity, morbid, BMI 40.0-49.9: Status: Chronic Assessment and plan: A1C 5.1. Encourage life-style changes. (5) DVT prophylaxis: Status: Acute Assessment and plan: SC heparin. 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 Discussed with Dr Purdy. Subjective Subjective Patient reports: no new complaints, voiding w/o difficulty, flatus, bowel movement and afebrile; denies diarrhea, nausea or vomiting Interval history since last seen: Pedro states he has gas; offered simethicone, he declined stating it isn't that bad. Exam Narrative Exam Narrative: General: Pleasant male who is sitting up in bed, multiple dressings on his back, A&Ox3, does not appear uncomfortable, conversant, watching television; guard at the bedside Skin: wounds dressed during exam and dressings not removed HEENT: EOMI, MMM Heart: S1 S2 RRR, no m/r/g Lungs: clear bilaterally Spine: straight, wounds lateral to spine on both sides of back with dressings that are currently clean and dry Abdomen: soft, nontender, nondistended Extremities: trace BLE +1 pitting Objective Last Vital Signs Temp 36.3 C L 06/15/22 15:37 Pulse 81 06/15/22 15:37 Resp 18 06/15/22 15:37 BP 133/69 06/15/22 15:37 Pulse Ox 98 06/15/22 15:37 Laboratory Results - last 24 hr 06/15/22 06/15/22 05:35 05:35 WBC 10.91 H RBC 4.27 L Hgb 12.5 L Hct 37.1 L MCV 87 MCH 29.3 MCHC 33.7 RDW 11.9 Plt Count 383 MPV 9.2 Immature Gran % 0.0 Neutrophils % 66.0 Band Neutrophils % 1 Lymphocytes % 20.0 Monocytes % 8.0 Eosinophils % 1.0 Basophils % 0.0 Metamyelocytes % 3 Myelocytes % 3 Nucleated RBC % 0.0 Absolute Neutrophils 7.31 H Absolute Lymphocytes 2.18 Absolute Monocytes 0.87 H Absolute Eosinophils 0.11 Absolute Basophils 0.00 RBC Morphology Normal Sodium 138 Potassium 4.3 Chloride 103 Carbon Dioxide 27.9 Anion Gap 7.1 BUN 16 Creatinine 0.8 Est GFR (CKD-EPI 2020) 121.34 Glucose 89 Calcium 9.2 Magnesium 1.9 C-Reactive Protein 1.23 H Time Spent with Patient Time Spent with Patient: 25-34 minutes Time was spent: preparing to see the patient(eg.review tests), obtaining and/or reviewing separately otained hiistory, ordering medications,tests, procedures, referring, communicating with other health hearing healthcare practitioner, indepentently interpreting results, counseling the patient and care coordination
[2022-06-15] MEDS: Ketorolac 30 MG/ML VIAL IVP (21:55)
[2022-06-15 23:08] VITALS: BP 124/98; PULSE 70; RESP 16; TEMP 36.7; O2SAT 98
--- NOTE | 2022-06-16 | DI.MRI_ITS ---
Exam(s) MR LUMBAR SPINE WO/W EXAM: MR LUMBAR SPINE WO/W CLINICAL HISTORY: back pain, concern for osteomyelitis/discitis/absc. TECHNIQUE: Multiplanar multisequence MRI of the Lumbar Spine was performed. CONTRAST MATERIAL: IV Contrast: 20 mL of Dotarem contrast administered. COMPARISON: No exams were available for comparison FINDINGS: Bones: The last intervertebral disc space is designated the L5/S1 level for the numbering purpose of this examination. The vertebral body heights are well maintained. Alignment is satisfactory. Hemangi juan miguel or fatty rests are seen in the L5 vertebral body. There is diffuse decreased signal seen on the T1 weighted images in the bone marrow. It is isointense to the signal within the discs and hypointen se to the muscle. The STIR images show diffuse decreased signal. Following contrast administration no abnormal enhancement is identified. Cord: The conus tip ends at the T12 level. It is of normal size and signal intensity. T12-L1: No disc herniations or bulges are present. No central spinal canal or neural foraminal stenos is. L1-2: No disc herniations or bulges are present. No central spinal canal or neural foraminal stenosis . L2-3: No disc herniations or bulges are present. No central spinal canal or neural foraminal stenosis . L3-4: No disc herniations or bulges are present. No central spinal canal or neural foraminal stenosis . L4-5: No disc herniations or bulges are present. No central spinal canal or neural foraminal stenosis . L5-S1: No disc herniations or bulges are present. No central spinal canal or neural foraminal stenosi s. Soft tissues: The visualized SI joints and sacrum are well maintained. The paraspinal soft tissues ar e unremarkable. There is no evidence of suspicious enhancement. IMPRESSION: 1. No evidence to suggest spondylo discitis. 2. No focal disc herniation, central spinal canal or neural foraminal stenosis is seen in the lumbar spine. 3. Diffuse hypointense signal in the bone marrow without evidence and of enhancement. This can be se en with red marrow reconversion or diffuse marrow replacement disorders. Please correlate with the p atient's clinical history. 4. No enhancing masses. 5. Hemangiomas or fatty rest in the L5 vertebral body. DATA REPOSITORY:
--- NOTE | 2022-06-16 | DI.MRI_ITS ---
Exam(s) MR THORACIC SPINE WO/W EXAM: MR THORACIC SPINE WO/W CLINICAL HISTORY: Concern for osteomyelitis/discitis/epidural absces. TECHNIQUE: Multiplanar multisequence MRI of the Thoracic spine was performed. CONTRAST MATERIAL: IV Contrast: 20 mL of Dotarem contrast administered. COMPARISON: CT CT CHEST W from 06/12/2022 FINDINGS: Bones: The vertebral body heights are well maintained. Alignment is satisfactory. There is diffuse de creased signal on the T1 weighted images in the visualized marrow relative to the muscle and the inte rvertebral disc signal. There is no enhancement. There is diffuse decreased signal seen on the STIR images. Cord: The thoracic cord is normal size and signal intensity. No intrinsic cord lesion is present. Discs: No disc herniation or bulge is present. Soft tissues: Normal. There is no evidence of suspicious enhancement. IMPRESSION: 1. No findings to suggest osteo myelitis/discitis. 2. No focal disc herniation central spinal canal or neural foraminal stenosis is seen in the thoracic spine. 3. Diffuse hypointense signal in the bone marrow on the T1 weighted images. This can be seen with re d marrow reconversion or other bone marrow replacement disorders. Please correlate with patient's cl inical history. DATA REPOSITORY:
[2022-06-16] MEDS: VANCOMYCIN/WATER (PEG) 2 GM/400 ML BAG IVPB ×2 (00:12→14:03)
[2022-06-16 06:07] LABS: Abs Immature Grans 1.14 10^3/uL (0.0-0.06); Absolute Basophil Count 0.05 10^3/uL (0.0-0.2); Absolute Lymphocyte Count 2.49 10^3/uL (1.2-3.4); Absolute Monocyte Count 1.04 10^3/uL (0.1-0.8); Basophils % 0.4; Eosinophils % 2.4; HCT 37.2 % (40.0-50.0); HGB 12.3 g/dL (13.5-17.5); Immature Grans % 9.1; Lymphocytes % 19.8; MCH 28.9 pg (27.0-33.0); MCHC 33.1 % (32.0-36.0); MCV 88 fL (80-95); Monocytes % 8.3; Platelet Count 346 10^3/uL (130-400); RBC 4.25 10^6/uL (4.36-5.78); RDW 11.9 % (11.8-14.1); WBC 12.57 10^3/uL (4.4-10.8)
[2022-06-16 06:15] LABS: Absolute Neutrophil Count 7.54 10^3/uL (1.2-6.7)
[2022-06-16 06:23] LABS: BUN 18 mg/dL (7-18); C-Reactive Protein 0.85 mg/dL (0.0-0.3); CREATININE 0.8 mg/dL (0.70-1.30); Calcium 9.1 mg/dL (8.5-10.1); Chloride 103 mmol/L (98-107); Estimated GFR 121.34 (mL/min/1.73m2); Glucose 87 mg/dL (74-106); Potassium 4.2 mmol/L (3.5-5.1); Sodium 138 mmol/L (136-145)
[2022-06-16] MEDS: Heparin 5,000 UNITS/ML VIAL 5000 UNITS SC ×2 (06:37→14:02)
[2022-06-16 06:46] LABS: Diff Comment Agrees w/ Instrument; RBC Morphology Normal
[2022-06-16 07:44] VITALS: BP 119/74; PULSE 65; RESP 16; TEMP 36; O2SAT 98
--- NOTE | 2022-06-16 07:56 | W.PM.PROGNOT ---
Date of Service Date of service: 06/16/22 Time of Service: 07:56 Assessment and Plan Assessment and plan (1) Abscess of multiple sites: Status: Acute Assessment and plan: Failed outpatient treatment with clindamycin, IM rocephin and Bactrim as an outpatient Abscess' on his back, 05/21 positive blood culture for MRSA; repeated blood culture neg x 72h today Continue vancomycin until 07/24/2022 for a total of 6 weeks, first negative blood culture was drawn on 06/13/2022. Continue oral? probiotic/ Bio-K started:? nursing home IV antibiotics can increase the risk of nosocomial infections such as C-Diff. Dr. Hogan from surgery is following to see if the upper L back collection needs to be I&D'ed. Dressing ordered BID as per nursing Bactoban cream to lesions Warm compresses to lesions that haven't opened yet Would pack draining wounds; left trapezius and? right mid-back wound change bid CT scan reviewed with radiolgist, Dr. Rubio. He does not beleive that there is underlying myositis or signs of necrotizing soft tissue infection (2) Gram-positive cocci bacteremia: Status: Acute Assessment and plan: Due to MRSA, 1 . Echo w/o vegetations. Repeat blood cultures negative at 72 hrs. Anticipate 6 weeks of abx from the 1st negative blood cultures as the MRI 06/16/22 is negative for osteo myelitis/discitis The end date of Vancomycin infusion will be on 07/24/2022 ( Started on the day of the draw 06/13/2022) MRI thoracic and lumbar spine ensured no vertebral OM/septic discitis/epidural abscess. MRI results: IMPRESSION: 1. No findings to suggest osteo myelitis/discitis. 2. No focal disc herniation central spinal canal or neural foraminal stenosis is seen in the thoracic spine. 3. Diffuse hypointense signal in the bone marrow on the T1 weighted images.? This can be seen with red marrow reconversion or other bone marrow replacement disorders.? Please correlate with patient's clinical history.? (3) MRSA cellulitis: Status: Acute Assessment and plan: As above (4) Obesity, morbid, BMI 40.0-49.9: Status: Chronic Assessment and plan: A1C 5.1. Encourage life-style changes. (5) DVT prophylaxis: Status: Acute Assessment and plan: Patient has increased risk of DVT due to bacteremia and BMI =46.8 Continue SC heparin. (6) Discharge planning issues: Status: Acute Assessment and plan: Full code Discussed with care management: will require skilled nursing antibiotics; looking into modality to arrange for adequate placement. Discussed with Dr Purdy. Subjective Subjective Interval history since last seen: Constitutional: Patient is in bed, sitting up during this interview. He speaks in full sentences and reports sleeping well reports: Patient reports decreased pain to abscesses when compared to the previous 24 hours.He does not require pain medicine at this time and knows it is available. He denies chills or fever overnight, reports intermittent night sweats denies dizziness or lightheadedness HEENT: Reports feeling of dryness and irritation to eyes. Denies swallowing difficulty, neck pain or neck swelling or stiffness Neuro: Denies weakness to extremities, denies numbness Cardiac: Denies chest pain Resp: Reports: seldom dry non-productive cough, no chest pain on deep breathing Denies shortness of breath or difficulty breathing GI: Reports eating well, having a bowel movement today Denies constipation,nausea or vomiting Musk:? Reports soreness to right/mid lower back T10-L1 and minimal discomfort to left trapezes muscle. at 3/10 but denies needing pain medicine at this time, report right sided spine pain Skin: Denies any other lesions on his body. : Report light yellow clear urine Denies dysuria Objective Last Vital Signs Temp 96.8 F L 06/16/22 07:44 Pulse 65 06/16/22 07:44 Resp 16 06/16/22 07:44 BP 119/74 06/16/22 07:44 Pulse Ox 98 06/16/22 07:44 Laboratory Results - last 24 hr 06/16/22 06/16/22 05:40 05:40 WBC 12.57 H RBC 4.25 L Hgb 12.3 L Hct 37.2 L MCV 88 MCH 28.9 MCHC 33.1 RDW 11.9 Plt Count 346 MPV 9.0 Immature Gran % 9.1 Neutrophils % 60.0 Lymphocytes % 19.8 Monocytes % 8.3 Eosinophils % 2.4 Basophils % 0.4 Nucleated RBC % 0.0 Absolute Neutrophils 7.54 H Absolute Lymphocytes 2.49 Absolute Monocytes 1.04 H Absolute Eosinophils 0.30 Absolute Basophils 0.05 RBC Morphology Normal Sodium 138 Potassium 4.2 Chloride 103 Carbon Dioxide 28.0 Anion Gap 7.0 BUN 18 Creatinine 0.8 Est GFR (CKD-EPI 2020) 121.34 Glucose 87 Calcium 9.1 Magnesium 2.0 C-Reactive Protein 0.85 H Time Spent with Patient Time Spent with Patient: >50 minutes Time was spent: preparing to see the patient(eg.review tests), obtaining and/or reviewing separately otained hiistory, referring, communicating with other health health care specialist, indepentently interpreting results, counseling the patient and care coordination
[2022-06-16] MEDS: Omeprazole 20 MG CAPCR PO ×2 (09:10→20:41)
[2022-06-16] MEDS: Normal Saline Flush 10 ML SYR IVP ×4 (09:10→20:36)
[2022-06-16] MEDS: HYDROmorphone 2 MG/ML SYR 0.5 MG IVP ×3 (09:10→20:34)
[2022-06-16] MEDS: Mupirocin 2% 15 GM TUBE TP ×3 (09:52→20:35)
[2022-06-16] MEDS: Gadoterate meglumine 20 ML VIAL IVP (12:15)
[2022-06-16 13:35] LABS: Vancomycin, Trough 13.2 ug/mL (10.0-20.0)
[2022-06-16 16:38] VITALS: BP 112/69; PULSE 68; RESP 16; TEMP 35.9; O2SAT 98
--- NOTE | 2022-06-16 16:50 | CMPROGNOTE_ITS ---
- If Service Date Differs Date of service: 06/16/22 Time of Service: 16:50 Care Management Progress Note S/O: Pedro remains closely monitored. 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 CM called [facility], to inquire if a PICC line can be placed at their medical facility, where he will likely be having his buttermilk drier operator IV abx. CM will continue to follow. A: Pedro is a 32 year old male admitted to [facility] on 06/11/22 for pustular lesions, cellulitis. P: Anticipate Pedro will return to the [place] correctional facility vs an inpatient unit at another group home/facility, if indicated. [place] correction[facility] will coordinate his secure transport. CM will continue to support discharge planning con siderations.
--- NOTE | 2022-06-16 16:50 | PDOC.CMPRO ---
- If Service Date Differs Date of service: 06/16/22 Time of Service: 16:50 Care Management Progress Note S/O: Pedro remains closely monitored. 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 CM will continue to follow. A: Pedro is a 32 year old male admitted to [facility] on 06/11/22 for pustular lesions, cellulitis. P: Anticipate Pedro will return to the [place] correctional facility vs an inpatient unit at another jail/facility, if indicated. [place] correction[facility] will coordinate his secure transport. CM will continue to support discharge planning considerations.
[2022-06-16] MEDS: Ketorolac 30 MG/ML VIAL IVP (20:35)
[2022-06-17] MEDS: VANCOMYCIN/WATER (PEG) 2 GM/400 ML BAG IVPB ×3 (00:14→23:48)
[2022-06-17] MEDS: Heparin 5,000 UNITS/ML VIAL 5000 UNITS SC ×4 (00:17→23:48)
[2022-06-17 06:43] LABS: Abs Immature Grans 0.68 10^3/uL (0.0-0.06); Absolute Eosinophil Count 0.22 10^3/uL (0.0-0.7); Absolute Monocyte Count 1.05 10^3/uL (0.1-0.8); Basophils % 0.9; Eosinophils % 1.9; HCT 36.3 % (40.0-50.0); HGB 12.2 g/dL (13.5-17.5); Immature Grans % 5.8; Lymphocytes % 19.2; MCH 29.6 pg (27.0-33.0); MCHC 33.6 % (32.0-36.0); MCV 88 fL (80-95); MPV 9.2 fL (8.0-11.0); Neutrophils % 63.2; Platelet Count 310 10^3/uL (130-400); RBC 4.12 10^6/uL (4.36-5.78); RDW 11.8 % (11.8-14.1); RDW-SD 37.9 fL; WBC 11.64 10^3/uL (4.4-10.8)
[2022-06-17 06:53] LABS: Absolute Lymphocyte Count 2.23 10^3/uL (1.2-3.4); Absolute Neutrophil Count 7.36 10^3/uL (1.2-6.7)
[2022-06-17 06:56] LABS: Anion Gap 7.2 mmol/L (3-11); BUN 17 mg/dL (7-18); CO2 27.8 mmol/L (21.0-32.0); CREATININE 0.8 mg/dL (0.70-1.30); Calcium 9.3 mg/dL (8.5-10.1); Chloride 102 mmol/L (98-107); Estimated GFR 121.34 (mL/min/1.73m2); Glucose 80 mg/dL (74-106); Magnesium 1.9 mg/dL (1.8-2.4); Potassium 3.8 mmol/L (3.5-5.1); Sodium 137 mmol/L (136-145)
[2022-06-17 06:59] LABS: Diff Comment Diff Reviewed; RBC Morphology Normal
[2022-06-17] MEDS: Omeprazole 20 MG CAPCR PO ×2 (07:49→20:30)
[2022-06-17 08:01] VITALS: BP 121/79; PULSE 60; RESP 16; TEMP 36.1; O2SAT 98
[2022-06-17] MEDS: HYDROmorphone 2 MG/ML SYR 0.5 MG IVP ×3 (08:53→20:30)
[2022-06-17] MEDS: Normal Saline Flush 10 ML SYR IVP ×2 (09:48→12:12)
[2022-06-17] MEDS: Mupirocin 2% 15 GM TUBE TP ×3 (09:49→21:52)
--- NOTE | 2022-06-17 13:12 | W.ANESVAS ---
Midline Placement Date Performed: 06/17/22 Procedure Time: 13:12 Requesting Provider: Moody Olivera Procedure Location: Med/Surg Sedation Given (Indicate Dose Given): No Sedation given Patient Mental Status: Awake Sterility: Hand Hygiene, Surgical Cap, Surgical Mask, Sterile Gloves, Sterile Drape/Sheet and Chlorhexidine Laterality: Left Insertion Site: Basilic Midline Device: PowerGlide Pro 20G Catheter Length: 10 cm Midline Procedure Procedure: 1% Lidocaine to skin and subcutaneous tissue with 25g needle, Vessel accessed with catheter over needle, Guidewire placed with ease, Catheter placed without resistance and Guidewire removed Dressing: Tegaderm Applied Blood Return: Present Flushes: Easily Ultrasound: Sterile probe cover and gel used Ultrasound Image Saved?: Yes Number of Attempts (See previous attempts in note section): 1 Procedure Tolerated: No Complications and Patient tolerated well Procedure Outcome: Successful Procedure Comment:: No complications, tolerated well. Performed By: Laurent Burciaga
[2022-06-17] MEDS: Normal Saline Flush 10 ML SYR (13:35)
--- NOTE | 2022-06-17 14:26 | CMPROGNOTE_ITS ---
- If Service Date Differs Date of service: 06/17/22 Time of Service: 14:26 Care Management Progress Note S/O: Pedro remains closely monitored with IV abx and wound care. He had a midline placed today, which is acceptable per Janes, as she will coordinate an appointment for a PICC line in the future. CM will provide MD to MD crow once MD is ready to discharge Pedro, likely tomorrow. CM will continue to follow. A: Pedro is a 32 year old male admitted to [facility] on 06/11/22 for pustular lesions, cellulitis. P: Anticipate Pedro will return to the [place] correctional facility vs an inpatient unit at another intermediate/facility, if indicated. [place] correctional will coordinate his secure transport. CM will continue to support discharge planning considerations.
[2022-06-17 15:46] VITALS: BP 129/80; PULSE 68; RESP 16; TEMP 36.4; O2SAT 100
--- NOTE | 2022-06-17 15:56 | PGE_ITS ---
Date of Service Date of service: 06/17/22 Time of Service: 15:56 Assessment and Plan Assessment and plan (1) MRSA cellulitis: Status: Acute Assessment and plan: 32yo male who is incarcerated, presents with MRSA cellulitis, with multiple lesions/abscesses over his back and arms. Failed outpt treatment with clindamycin, then IM rocephin + Bactrim. Cellulitus is improving over back lesions. No need for new abscess drainage appreciated at this time. MRSA present in 1/4 original blood cultures, now negative. Vancomycin x 6 weeks, per primary team Pack draining wounds-- left trapezius and right mid-back wound change bid Surgery will sign off; please re-consult as necessary Subjective Subjective Interval history since last seen: Pt reports feeling okay. Denies fevers/chills, nausea/vomiting. He denies feeling any new areas of pain/tenderness. Exam Const General: cooperative, healthy appearing, comfortable and no acute distress Nutritional Appearance: average body habitus and well nourished Orientation: alert, awake and oriented x3 Resp Effort & Inspection: normal respiratory effort and able to speak in complete sentences GI Inspection: normal to inspection Palpation: soft and nontender Skin Lesions: lesion noted (Multiple small areas of cellulitis/inflammation over back and arm) and other Other: left trapezius and right medial sub-scapular wounds packed with decreased induration and cellulitus; small grouping of 3 lesions medial to left scapula less papular/cellulitic, no fluctuance Neuro Cognition: normal cognition Speech: speech normal Psych Mental Status: mental status grossly normal Thought Process: normal Thought Content: normal Objective Last Vital Signs Temp 97.5 F L 06/17/22 15:46 Pulse 68 06/17/22 15:46 Resp 16 06/17/22 15:46 BP 129/80 06/17/22 15:46 Pulse Ox 100 06/17/22 15:46 Laboratory Results - last 24 hr 06/17/22 06/17/22 05:34 05:34 WBC 11.64 H RBC 4.12 L Hgb 12.2 L Hct 36.3 L MCV 88 MCH 29.6 MCHC 33.6 RDW 11.8 Plt Count 310 MPV 9.2 Immature Gran % 5.8 Neutrophils % 63.2 Lymphocytes % 19.2 Monocytes % 9.0 Eosinophils % 1.9 Basophils % 0.9 Nucleated RBC % 0.0 Absolute Neutrophils 7.36 H Absolute Lymphocytes 2.23 Absolute Monocytes 1.05 H Absolute Eosinophils 0.22 Absolute Basophils 0.10 RBC Morphology Normal Sodium 137 Potassium 3.8 Chloride 102 Carbon Dioxide 27.8 Anion Gap 7.2 BUN 17 Creatinine 0.8 Est GFR (CKD-EPI 2020) 121.34 Glucose 80 Calcium 9.3 Magnesium 1.9 Time Spent with Patient Time Spent with Patient: <25 minutes Time was spent: preparing to see the patient(eg.review tests), obtaining and/or reviewing separately otained hiistory, referring, communicating with other health childcare center administrator, indepentently interpreting results and counseling the patient
--- NOTE | 2022-06-17 18:03 | W.PM.PROGNOT ---
Date of Service Date of service: 06/17/22 Time of Service: 18:03 Assessment and Plan Assessment and plan (1) MRSA cellulitis: Status: Acute Assessment and plan: bid dressing changes to right trapezius and mid back abscesses and 6 weeks of vancomycin as outlined below (2) Abscess of multiple sites: Status: Acute Assessment and plan: bid wound care as directed by surgery. The surgeon has signed off this case and upon discharge nursing at the [facility] can follow the surgeons directions as to wound care or they can consult local wound care nurse or local surgeon. currently, continue use of mupirocin (3) MRSA bacteremia: Status: Acute Assessment and plan: 6 weeks of Vancomycin w/ trough levels of 15 to 20. end date of treatment is July 25. (4) Discharge planning issues: Status: Acute Assessment and plan: now that he has midline in place, he can be discharged in the a.m. to [facility] for completion of his antibiotic treatment. Subjective Subjective Interval history since last seen: Patient has no new concerns. He understands the gravity of the situation of his need to complete the full 6 week course of antibiotics to prevent Staph aureus endocarditis. Exam Narrative Exam Narrative: Alert and oriented x 3, no discomfort Skin wounds over his back have been packed and dressed by surgeon earlier in the day; no surrounding edmea or induration Rest of his skin he has multiple tatoos over his body but no visible open sores over his arms or anterior torso or legs Left arm now has PICC line in place Objective Last Vital Signs Temp 36.4 C L 06/17/22 15:46 Pulse 68 06/17/22 15:46 Resp 16 06/17/22 15:46 BP 129/80 06/17/22 15:46 Pulse Ox 100 06/17/22 15:46 Laboratory Results - last 24 hr 06/17/22 06/17/22 05:34 05:34 WBC 11.64 H RBC 4.12 L Hgb 12.2 L Hct 36.3 L MCV 88 MCH 29.6 MCHC 33.6 RDW 11.8 Plt Count 310 MPV 9.2 Immature Gran % 5.8 Neutrophils % 63.2 Lymphocytes % 19.2 Monocytes % 9.0 Eosinophils % 1.9 Basophils % 0.9 Nucleated RBC % 0.0 Absolute Neutrophils 7.36 H Absolute Lymphocytes 2.23 Absolute Monocytes 1.05 H Absolute Eosinophils 0.22 Absolute Basophils 0.10 RBC Morphology Normal Sodium 137 Potassium 3.8 Chloride 102 Carbon Dioxide 27.8 Anion Gap 7.2 BUN 17 Creatinine 0.8 Est GFR (CKD-EPI 2020) 121.34 Glucose 80 Calcium 9.3 Magnesium 1.9 Time Spent with Patient Time Spent with Patient: <25 minutes Time was spent: preparing to see the patient(eg.review tests), counseling the patient and care coordination
[2022-06-17 22:36] VITALS: BP 133/83; PULSE 66; RESP 16; TEMP 36.2; O2SAT 96
[2022-06-18 07:20] VITALS: BP 115/69; PULSE 84; RESP 16; TEMP 36.1; O2SAT 98
[2022-06-18] MEDS: Normal Saline Flush 10 ML SYR IVP ×3 (09:04→13:34)
[2022-06-18] MEDS: HYDROmorphone 2 MG/ML SYR 0.5 MG IVP ×2 (09:04→13:34)
[2022-06-18] MEDS: Heparin 5,000 UNITS/ML VIAL 5000 UNITS SC (09:04)
[2022-06-18] MEDS: Omeprazole 20 MG CAPCR PO (09:04)
[2022-06-18] MEDS: Mupirocin 2% 15 GM TUBE TP ×2 (09:08→13:35)
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
[2022-06-18] MEDS: VANCOMYCIN/WATER (PEG) 2 GM/400 ML BAG IVPB (12:14)
--- NOTE | 2022-06-18 14:21 | CMDISCH_ITS ---
- If Service Date Differs Date of service: 06/18/22 Time of Service: 14:21 LACE Index Scoring Tool - Questions: Length of Stay (in days): 7 - 13 Acuity (Admit via E.D.?): Yes E.D. Visits: 2 - Answers: Total Score: 10 Risk of Readmission: High Risk Care Management Discharge Reason for Hospitalization: Pustular lesions, cellulitis Discharge Plan: [facility] [place] [facility] [place] [facility] and wound care, coordinated by [facility] and CM. He will have secure transport, provided by [facility]. He will follow up with facility providers and his discharge plan of care. Patient/Family Education Needs: Review discharge instructions and limitations, discussion of self care needs including ask me three.
== END 2022-06-18 14:40 | DRG 603 ==
LOC: ER 14:11 → MS 14:20
PROVIDERS: Internal Medicine; Nurse Practitioner Family; Admitting Provider Family Medicine; Emergency Provider Nurse Practitioner Family; Visit Provider Family Medicine
DX: L03.312 Cellulitis of back [any part except buttock and flank] (principal); R78.81 Bacteremia; Z68.42 Body mass index [BMI] 45.0-49.9, adult; B95.62 Methicillin resistant Staphylococcus aureus infection as the cause of diseases classified elsewhere; F15.10 Other stimulant abuse, uncomplicated; E66.01 Morbid (severe) obesity due to excess calories; L02.212 Cutaneous abscess of back [any part, except buttock and flank]; R07.89 Other chest pain; M54.6 Pain in thoracic spine
CPT/HCPCS: 97597; 36410; 36415; 72158; 76942; 80048; 80053; 80307; 84145; 85652; 87040; 87077; 87081; 87635; 96365; 96366; 99285; 71260; 72157; 80202; 83036; 83735; 85025; 86140; 87070; 87186; 87205; 93306; 99222; 99231; 99232; 99233; 99238; J1170; J1644; J1885; J3490